=== PATIENT | male | born 1950 | race Caucasian/White ===

== ENCOUNTER 2018-10-27 13:53 | Observation (INO) | payer MEDICARE ==
[2018-10-27 14:22] LABS: CHLORIDE,CL 99 mEq/L (98-106); SODIUM,NA 137 mEq/L (136-145)
[2018-10-27] MEDS ORDERED: Sodium Chloride 0.9% 10 ML Syringe FLUSH PRN (16:37)
[2018-10-27] MEDS ORDERED: Albuterol 0.083% 2.5 MG/3 ML Neb Soln INH PRN (16:56)
[2018-10-27] MEDS ORDERED: **PTOM** Warfarin 5 MG Tab PO ONE (17:00)
[2018-10-27] MEDS: Levalbuterol HCl 1.25 MG/3 ML Neb NEB SCH ×2 (18:58→20:09)
[2018-10-27] MEDS ORDERED: Insulin NPH HUM/REG Insulin HM 100 UNIT/ML 3 ML Vial SQ SCH (20:00)
[2018-10-27] MEDS: CARVEDILOL 25 MG PO SCH (20:01)
[2018-10-27] MEDS ORDERED: guaiFENesin 200 MG Tab PO ONE ×2 (22:20→22:30)
[2018-10-28 07:45] LABS: CHLORIDE,CL 104 mEq/L (98-106); SODIUM,NA 141 mEq/L (136-145)
[2018-10-28] MEDS: Levalbuterol HCl 1.25 MG/3 ML Neb NEB SCH (07:53)
[2018-10-28] MEDS: **PTOM** Furosemide 40 MG Tab PO SCH (07:58)
[2018-10-28] MEDS: SPIRONOLACTONE 25 MG PO SCH (07:59)
[2018-10-28] MEDS ORDERED: AMLODIPINE BESYLATE 5 MG PO SCH ×2 (08:00→20:00)
[2018-10-28] MEDS ORDERED: LISINOPRIL 40 MG PO SCH ×2 (08:00→20:00)
[2018-10-28] MEDS ORDERED: CLOPIDOGREL 75 MG PO SCH ×2 (08:00→20:00)
[2018-10-28] MEDS: POTASSIUM CHLORIDE 20 MEQ PO SCH (08:02)
[2018-10-28] MEDS: CARVEDILOL 25 MG PO SCH ×2 (08:03→19:42)
[2018-10-28] MEDS: Aspirin 81 MG Tab.EC PO SCH (08:06)
[2018-10-28] MEDS: guaiFENesin 200 MG Tab PO SCH ×3 (08:06→19:45)
[2018-10-28] MEDS: Insulin NPH HUM/REG Insulin HM 100 UNIT/ML 3 ML Vial SQ SCH (08:13)
[2018-10-28] MEDS ORDERED: Levalbuterol HCl 1.25 MG/3 ML Neb NEB PRN (09:23)
[2018-10-28] MEDS: Albuterol/Ipratropium 3.0-0.5 MG/3 ML Neb Soln NEB SCH ×3 (12:00→19:57)
[2018-10-28] MEDS ORDERED: Warfarin 5 MG Tab PO ONE (17:26)
[2018-10-28] MEDS ORDERED: Insulin NPH HUM/REG Insulin HM 100 UNIT/ML 3 ML Vial SQ SCH (17:30)
[2018-10-28] MEDS: Budesonide 0.5 MG/2 ML Neb Susp NEB SCH (19:57)
--- NOTE | 2018-10-28 21:01 | PCM.PN ---
- General Info Date of Service: 10/28/18 Admission Dx/Problem (Free Text): Shortness of Breath with Exertion Functional Status: Reports: Pain Controlled, Tolerating Diet. Denies: Ambulating - Review of Systems General: Reports: Weakness, Fatigue HEENT: Reports: Post Nasal Drip. Denies: Ear Pain, Sinus Congestion, Rhinitis Pulmonary: Reports: Shortness of Breath, Cough, Sputum, Wheezing Cardiovascular: Denies: Chest Pain, Edema, Lightheadedness Gastrointestinal: Denies: Abdominal Pain, Nausea, Vomiting Genitourinary: Reports: No Symptoms Musculoskeletal: Reports: No Symptoms Skin: Reports: No Symptoms Neurological: Reports: Weakness - Patient Data Vitals - Most Recent: Last Vital Signs Temp 98.7 F 10/28/18 16:00 Pulse 85 10/28/18 16:00 Resp 20 10/28/18 16:00 BP 148/83 H 10/28/18 16:00 Pulse Ox 97 10/28/18 16:00 Weight - Most Recent: 256 lb Lab Results Last 24 Hours: Laboratory Results - last 24 hr 10/28/18 10/28/18 10/28/18 Range/Units 06:55 06:55 06:55 WBC 7.4 (5.0-10.0) 10^3/uL RBC 4.51 (4.50-6.00) 10^6/uL Hgb 15.1 (14.0-18.0) g/dL Hct 44.3 (40.0-54.0) % MCV 98.2 H (82.0-94.0) fL MCH 33.5 H (27.0-32.0) pg MCHC 34.1 (33.0-38.0) g/dL RDW Coeff of Mo 13.7 (11.0-15.0) % Plt Count 130 L (150-400) 10^3/uL Neut % (Auto) 55.2 (35-85) % Lymph % (Auto) 27.2 (10-55) % [place] % (Auto) 12.2 (0-16) % Eos % (Auto) 5.0 (0-5) % Baso % (Auto) 0.4 (0-3) % Neut # (Auto) 4.10 (1.80-7.00) 10^3/uL Lymph # (Auto) 2.02 (1.00-4.80) 10^3/uL [place] # (Auto) 0.91 H (0.00-0.80) 10^3/uL Eos # (Auto) 0.37 (0.00-0.45) 10^3/uL Baso # (Auto) 0.03 10^3/uL PT 12.3 (9.7-12.3) SEC INR 1.21 H (0.92-1.18) Sodium 141 (136-145) mEq/L Potassium 4.3 (3.5-5.0) mEq/L Chloride 104 (98-106) mEq/L Carbon Dioxide 33 H (21-32) mmol/L BUN 13 (7-18) mg/dL Creatinine 0.8 (0.7-1.3) mg/dL Est Cr Clr Drug Dosing 99.90 mL/min Estimated GFR (MDRD) > 60 (>=60) mL/min Glucose 107 H D (75-99) mg/dL POC Glucose (75-105) mg/dl Calcium 9.0 (8.4-10.1) mg/dL Troponin I 0.136 H (0.00-0.06) ng/mL C-Reactive Protein 2.2 H (0.2-0.8) mg/dL 10/28/18 10/28/18 10/28/18 Range/Units 08:09 11:45 17:24 WBC (5.0-10.0) 10^3/uL RBC (4.50-6.00) 10^6/uL Hgb (14.0-18.0) g/dL Hct (40.0-54.0) % MCV (82.0-94.0) fL MCH (27.0-32.0) pg MCHC (33.0-38.0) g/dL RDW Coeff of Mo (11.0-15.0) % Plt Count (150-400) 10^3/uL Neut % (Auto) (35-85) % Lymph % (Auto) (10-55) % [place] % (Auto) (0-16) % Eos % (Auto) (0-5) % Baso % (Auto) (0-3) % Neut # (Auto) (1.80-7.00) 10^3/uL Lymph # (Auto) (1.00-4.80) 10^3/uL [place] # (Auto) (0.00-0.80) 10^3/uL Eos # (Auto) (0.00-0.45) 10^3/uL Baso # (Auto) 10^3/uL PT (9.7-12.3) SEC INR (0.92-1.18) Sodium (136-145) mEq/L Potassium (3.5-5.0) mEq/L Chloride (98-106) mEq/L Carbon Dioxide (21-32) mmol/L BUN (7-18) mg/dL Creatinine (0.7-1.3) mg/dL Est Cr Clr Drug Dosing mL/min Estimated GFR (MDRD) (>=60) mL/min Glucose (75-99) mg/dL POC Glucose 107 H 310 H 274 H (75-105) mg/dl Calcium (8.4-10.1) mg/dL Troponin I (0.00-0.06) ng/mL C-Reactive Protein (0.2-0.8) mg/dL 10/28/18 Range/Units 20:37 WBC (5.0-10.0) 10^3/uL RBC (4.50-6.00) 10^6/uL Hgb (14.0-18.0) g/dL Hct (40.0-54.0) % MCV (82.0-94.0) fL MCH (27.0-32.0) pg MCHC (33.0-38.0) g/dL RDW Coeff of Mo (11.0-15.0) % Plt Count (150-400) 10^3/uL Neut % (Auto) (35-85) % Lymph % (Auto) (10-55) % [place] % (Auto) (0-16) % Eos % (Auto) (0-5) % Baso % (Auto) (0-3) % Neut # (Auto) (1.80-7.00) 10^3/uL Lymph # (Auto) (1.00-4.80) 10^3/uL [place] # (Auto) (0.00-0.80) 10^3/uL Eos # (Auto) (0.00-0.45) 10^3/uL Baso # (Auto) 10^3/uL PT (9.7-12.3) SEC INR (0.92-1.18) Sodium (136-145) mEq/L Potassium (3.5-5.0) mEq/L Chloride (98-106) mEq/L Carbon Dioxide (21-32) mmol/L BUN (7-18) mg/dL Creatinine (0.7-1.3) mg/dL Est Cr Clr Drug Dosing mL/min Estimated GFR (MDRD) (>=60) mL/min Glucose (75-99) mg/dL POC Glucose 378 H (75-105) mg/dl Calcium (8.4-10.1) mg/dL Troponin I (0.00-0.06) ng/mL C-Reactive Protein (0.2-0.8) mg/dL Med Orders - Current: Current Medications Albuterol (Proventil Neb Soln) 2.5 mg INH QIDRT PRN PRN Reason: Shortness of Breath Albuterol/Ipratropium (Duoneb 3.0-0.5 Mg/3 Ml) 3 ml NEB QIDRT [facility] Last Admin: 10/28/18 19:57 Dose: 3 ml Aspirin (Halfprin) 81 mg PO DAILY [facility] Last Admin: 10/28/18 08:06 Dose: 81 mg Budesonide (Pulmicort) 0.5 mg NEB BIDRT [facility] Last Admin: 10/28/18 19:57 Dose: 0.5 mg Clopidogrel Bisulfate (Plavix) 75 mg PO BEDTIME [facility] Last Admin: 10/28/18 19:43 Dose: 75 mg Furosemide (Lasix) 40 mg PO DAILY [facility] Last Admin: 10/28/18 07:58 Dose: 40 mg Guaifenesin (Organ-I Nr) 200 mg PO TID [facility] Last Admin: 10/28/18 19:45 Dose: 200 mg Insulin NPH Beef/Pork (Humulin 70-30) 100 unit SQ DAILY [facility] Last Admin: 10/28/18 08:13 Dose: 25 unit Insulin NPH Beef/Pork (Humulin 70-30) 50 unit SQ DAILY@1730 [facility] Last Admin: 10/28/18 18:02 Dose: 25 unit Levalbuterol HCl (Xopenex) 1.25 mg NEB QIDRT PRN PRN Reason: Wheezing Ptom Carvedilol (25 Mg) 25 mg PO BID [facility] Last Admin: 10/28/18 19:42 Dose: 25 mg Ptom Potassium (Chloride 20 Meq) 20 meq PO DAILY [facility] Last Admin: 10/28/18 08:02 Dose: 20 meq Ptom Amlodipine (Besylate 5 Mg) 5 mg PO BEDTIME [facility] Last Admin: 10/28/18 19:42 Dose: 5 mg Ptom Lisinopril (40 Mg) 40 mg PO BEDTIME [facility] Last Admin: 10/28/18 19:43 Dose: 40 mg Sodium Chloride (Saline Flush) 10 ml FLUSH ASDIRECTED PRN PRN Reason: Keep Vein Open Spironolactone (Aldactone) 25 mg PO DAILY [facility] Last Admin: 10/28/18 07:59 Dose: 25 mg Discontinued Medications Clopidogrel Bisulfate (Plavix) 75 mg PO DAILY [facility] Last Admin: 10/28/18 12:07 Dose: Not Given Guaifenesin (Organ-I Nr) 200 mg PO ONETIME ONE Stop: 10/27/18 22:31 Last Admin: 10/27/18 22:25 Dose: 200 mg Guaifenesin (Organ-I Nr) 200 mg PO ONETIME ONE Stop: 10/27/18 22:21 Last Admin: 10/27/18 23:10 Dose: Not Given Insulin NPH Beef/Pork (Humulin 70-30) 50 unit SQ BEDTIME [facility] Last Admin: 10/27/18 20:43 Dose: 50 unit Levalbuterol HCl (Xopenex) 1.25 mg NEB QIDRT [facility] Last Admin: 10/28/18 07:53 Dose: 1.25 mg Ptom Amlodipine (Besylate 5 Mg) 5 mg PO DAILY [facility] Last Admin: 10/28/18 12:06 Dose: Not Given Ptom Lisinopril (40 Mg) 40 mg PO DAILY [facility] Last Admin: 10/28/18 12:06 Dose: Not Given Warfarin Sodium (Coumadin) 10 mg PO ONETIME ONE Stop: 10/27/18 17:01 Last Admin: 10/27/18 19:23 Dose: Not Given Warfarin Sodium (Coumadin) 5 mg PO ONETIME ONE Stop: 10/28/18 17:27 Last Admin: 10/28/18 18:01 Dose: 5 mg - Exam Quality Assessment: Supplemental Oxygen General: Alert, Oriented HEENT: Mucous Membr. Moist/[place] Neck: Supple Lungs: Decreased Breath Sounds, Wheezing Cardiovascular: Irregular Rhythm GI/Abdominal Exam: Normal Bowel Sounds, Soft, Non-Tender Extremities: Normal Inspection, No Pedal Edema Skin: Warm, Dry Neurological: No New Focal Deficit - Problem List & Annotations (1) Shortness of breath on exertion SNOMED Code(s): 53351375 Code(s): R06.02 - SHORTNESS OF BREATH Status: Acute Priority: High Current Visit: Yes - Problem List Review Problem List Initiated/Reviewed/Updated: Yes - My Orders Last 24 Hours: My Active Orders 10/28/18 08:00 guaiFENesin [Organ-I NR] 200 mg PO TID 10/28/18 09:23 Levalbuterol HCl [Xopenex] 1.25 mg NEB QIDRT PRN 10/28/18 20:00 Budesonide [Pulmicort] 0.5 mg NEB BIDRT 10/28/18 Breakfast Consistent Carbohydrate Diet [DIET] - Assessment Assessment:: Shortness of Breath with exertion - Plan Plan:: Patient continues to feel short of breath, especially with exertion. Wheezing at times. Coughing yet, feels excessive phlegm at times. No chest pain. Does have chronic shortness of breath related to his COPD but states this felt somewhat different than his norm. Has had multiple stents placed as well. Troponin on admit indeterminate, still same range last night, this am is down minimally at 0.36. WBC normal. INR still low at 1.21. Telemetry shows atrial fib, low rate in the 50s at times. Did attempt to take off oxygen this am after round, got short of breath within 20 minutes or so and wanted oxygen resumed. Did ambulate to bathroom and sats dropped to the upper 80s. Will add Pulmicort nebs, Duonebs and monitor.
[2018-10-29] MEDS: SPIRONOLACTONE 25 MG PO SCH (07:07)
[2018-10-29] MEDS: **PTOM** Furosemide 40 MG Tab PO SCH (07:07)
[2018-10-29] MEDS: Albuterol/Ipratropium 3.0-0.5 MG/3 ML Neb Soln NEB SCH ×2 (07:07→11:39)
[2018-10-29] MEDS: guaiFENesin 200 MG Tab PO SCH (07:07)
[2018-10-29] MEDS: CARVEDILOL 25 MG PO SCH (07:07)
[2018-10-29] MEDS: Aspirin 81 MG Tab.EC PO SCH (07:07)
[2018-10-29] MEDS: Budesonide 0.5 MG/2 ML Neb Susp NEB SCH (07:07)
[2018-10-29] MEDS: POTASSIUM CHLORIDE 20 MEQ PO SCH (07:08)
[2018-10-29] MEDS: Insulin NPH HUM/REG Insulin HM 100 UNIT/ML 3 ML Vial SQ SCH (08:11)
[2018-10-29 14:12] VITALS: BP 128/62
--- NOTE | 2018-10-31 09:00 | PCM.DCSUM1 ---
Discharge Summary - Hospital Course Free Text/Narrative:: Patient presented to clinic for increased shortness of breath. Has history of COPD but shortness of breath worse than his norm. Does admit that the humidity does cause issues for him. Nebulizer treatment does not last 4 hours and is tight and wheezy. Had 4-5 stents placed in the past, worried SOB could be related to that. Labs done which did show normal d-dimer, WBC, BMP, ProBNP. Troponin indeterminate at 0.183. Admitted for serial enzymes, neb treatments and monitoring. Has history of atrial fib, diabetes, CAD. Diagnosis: Stroke: No Modified Carmen Scale: No Symptoms at All Modified [place] Scale Score: 0 - Discharge Data Discharge Date: 10/29/18 Discharge Disposition: Home, Self-Care 01 Condition: Good - Discharge Diagnosis/Problem(s) (1) Shortness of breath on exertion SNOMED Code(s): 26788793 ICD Code: R06.02 - SHORTNESS OF BREATH Status: Acute Priority: High - Patient Summary/Data Complications: none Hospital Course: Patient is improved today. Did struggle with shortness of breath yet yesterday. Initially unable to wean off oxygen as sats would drop in to the 80s with any activity. He has better air exchange today, less wheezing. Was started on pulmicort nebulizers yesterday. He has used symbicort in the past but states stops due to cost. Able to ambulate today with sat remaining at 90% or higher. Troponins did remain indeterminate but dropped from admit. No EKG changes. Atrial fib with low rate at times, asymptomatic. Blood sugars low at times near 100, insulin cut back while here with better control of dietary intake. INR was low on admit so have been watching his INR daily. Will increase weekly dose by 5 mg. Repeat INR at recheck Smoking cessation was discussed with patient as does admit he smokes even while taking his nebulizer treatments. Does feel better control with the duonebs and pulmicort while here versus just albuterol at home. Will discharge home on both. Follow up with Jm in next 1-2 weeks after discharge. - Patient Instructions Diet: Diabetic Diet Activity: As Tolerated - Discharge Plan *PRESCRIPTION DRUG MONITORING PROGRAM REVIEWED*: No *COPY OF PRESCRIPTION DRUG MONITORING REPORT IN PATIENT AVRIL: No Prescriptions/Med Rec: Albuterol/Ipratropium [DuoNeb 3.0-0.5 MG/3 ML] 3 ml NEB QIDRT #1 box Budesonide [Pulmicort] 0.5 mg NEB BIDRT #60 neb guaiFENesin [Organ-I NR] 200 mg PO TID #60 tablet Warfarin [Coumadin] 10 mg PO MOFR #30 tab Warfarin [Coumadin] 5 mg PO SUTUWETHSA #30 tab Home Medications: Home Meds Carvedilol 25 mg PO BID 02/08/14 [History] Furosemide 40 mg PO DAILY 02/08/14 [History] Insulin NPH/Insulin Reg,Human [HumuLIN 70-30] 50 units SUBCUT BEDTIME 02/08/14 [ History] Lisinopril 40 mg PO DAILY 02/08/14 [History] Spironolactone 25 mg PO DAILY 02/08/14 [History] amLODIPine Besylate [Amlodipine Besylate] 5 mg PO DAILY 02/08/14 [History] Albuterol [Proventil] 2.5 mg INH QIDRT PRN 08/15/17 [History] Aspirin [Halfprin] 81 mg PO DAILY 10/27/18 [History] Cholecalciferol (Vitamin D3) [Vitamin D3] 2,000 units PO DAILY 10/27/18 [History ] Clopidogrel Bisulfate [Clopidogrel] 75 mg PO DAILY 10/27/18 [History] Insulin NPH/Insulin Reg,Human [HumuLIN 70-30] 100 units SUBCUT DAILY 10/27/18 [ History] Multivitamin [Daily Multiple Vitamin] 1 each PO DAILY 10/27/18 [History] Potassium Chloride 20 meq PO DAILY 10/27/18 [History] Albuterol/Ipratropium [DuoNeb 3.0-0.5 MG/3 ML] 3 ml NEB QIDRT #1 box 10/29/18 [ Rx] Budesonide [Pulmicort] 0.5 mg NEB BIDRT #60 neb 10/29/18 [Rx] Warfarin [Coumadin] 5 mg PO SUTUWETHSA #30 tab 10/29/18 [Rx] Warfarin [Coumadin] 10 mg PO MOFR #30 tab 10/29/18 [Rx] guaiFENesin [Organ-I NR] 200 mg PO TID #60 tablet 10/29/18 [Rx] Referrals: Kenn Sahni PA-C [Primary Care Provider] - (Follow up with Jm in 10 days. Have INR prior to visit) - Discharge Summary/Plan Comment DC Time >30 min.: No - General Info Date of Service: 10/29/18 Admission Dx/Problem (Free Text: Shortness of Breath with Exertion Functional Status: Reports: Pain Controlled, Tolerating Diet, Ambulating - Review of Systems General: Denies: Fever, Weakness, Fatigue, Malaise HEENT: Reports: Post Nasal Drip, Rhinitis Pulmonary: Reports: Shortness of Breath, Cough, Wheezing. Denies: Sputum Cardiovascular: Denies: Chest Pain, Edema, Lightheadedness Gastrointestinal: Denies: Abdominal Pain, Nausea, Vomiting Genitourinary: Reports: No Symptoms Musculoskeletal: Reports: No Symptoms Skin: Reports: No Symptoms Neurological: Reports: No Symptoms - Patient Data Vitals - Most Recent: Last Vital Signs Temp 98.2 F 10/29/18 12:00 Pulse 68 10/29/18 12:00 Resp 18 10/29/18 12:00 BP 128/62 10/29/18 12:00 Pulse Ox 98 10/29/18 12:00 Weight - Most Recent: 256 lb Med Orders - Current: Current Medications Discontinued Medications Albuterol (Proventil Neb Soln) 2.5 mg INH QIDRT PRN PRN Reason: Shortness of Breath Albuterol/Ipratropium (Duoneb 3.0-0.5 Mg/3 Ml) 3 ml NEB QIDRT [facility] Last Admin: 10/29/18 11:39 Dose: 3 ml Aspirin (Halfprin) 81 mg PO DAILY [facility] Last Admin: 10/29/18 07:07 Dose: 81 mg Budesonide (Pulmicort) 0.5 mg NEB BIDRT [facility] Last Admin: 10/29/18 07:07 Dose: 0.5 mg Clopidogrel Bisulfate (Plavix) 75 mg PO DAILY [facility] Last Admin: 10/28/18 12:07 Dose: Not Given Clopidogrel Bisulfate (Plavix) 75 mg PO BEDTIME [facility] Last Admin: 10/28/18 19:43 Dose: 75 mg Furosemide (Lasix) 40 mg PO DAILY [facility] Last Admin: 10/29/18 07:07 Dose: 40 mg Guaifenesin (Organ-I Nr) 200 mg PO TID [facility] Last Admin: 10/29/18 07:07 Dose: 200 mg Guaifenesin (Organ-I Nr) 200 mg PO ONETIME ONE Stop: 10/27/18 22:31 Last Admin: 10/27/18 22:25 Dose: 200 mg Guaifenesin (Organ-I Nr) 200 mg PO ONETIME ONE Stop: 10/27/18 22:21 Last Admin: 10/27/18 23:10 Dose: Not Given Insulin NPH Beef/Pork (Humulin 70-30) 50 unit SQ BEDTIME [facility] Last Admin: 10/27/18 20:43 Dose: 50 unit Insulin NPH Beef/Pork (Humulin 70-30) 100 unit SQ DAILY [facility] Last Admin: 10/29/18 08:11 Dose: 25 unit Insulin NPH Beef/Pork (Humulin 70-30) 50 unit SQ DAILY@1730 [facility] Last Admin: 10/28/18 18:02 Dose: 25 unit Levalbuterol HCl (Xopenex) 1.25 mg NEB QIDRT [facility] Last Admin: 10/28/18 07:53 Dose: 1.25 mg Levalbuterol HCl (Xopenex) 1.25 mg NEB QIDRT PRN PRN Reason: Wheezing Ptom Amlodipine (Besylate 5 Mg) 5 mg PO DAILY [facility] Last Admin: 10/28/18 12:06 Dose: Not Given Ptom Carvedilol (25 Mg) 25 mg PO BID [facility] Last Admin: 10/29/18 07:07 Dose: 25 mg Ptom Lisinopril (40 Mg) 40 mg PO DAILY [facility] Last Admin: 10/28/18 12:06 Dose: Not Given Ptom Potassium (Chloride 20 Meq) 20 meq PO DAILY [facility] Last Admin: 10/29/18 07:08 Dose: 20 meq Ptom Amlodipine (Besylate 5 Mg) 5 mg PO BEDTIME [facility] Last Admin: 10/28/18 19:42 Dose: 5 mg Ptom Lisinopril (40 Mg) 40 mg PO BEDTIME [facility] Last Admin: 10/28/18 19:43 Dose: 40 mg Sodium Chloride (Saline Flush) 10 ml FLUSH ASDIRECTED PRN PRN Reason: Keep Vein Open Spironolactone (Aldactone) 25 mg PO DAILY [facility] Last Admin: 10/29/18 07:07 Dose: 25 mg Warfarin Sodium (Coumadin) 10 mg PO ONETIME ONE Stop: 10/27/18 17:01 Last Admin: 10/27/18 19:23 Dose: Not Given Warfarin Sodium (Coumadin) 5 mg PO ONETIME ONE Stop: 10/28/18 17:27 Last Admin: 10/28/18 18:01 Dose: 5 mg Warfarin Sodium 2 mg/ Warfarin (Sodium 5 mg) 7 mg PO DAILY ONE Stop: 10/29/18 12:01 Last Admin: 10/29/18 11:40 Dose: 7 mg - Exam General: Reports: Alert, Oriented HEENT: Reports: Mucous Membr. Moist/[place] Neck: Reports: Supple Lungs: Reports: Normal Respiratory Effort, Decreased Breath Sounds, Wheezing Cardiovascular: Reports: Irregular Rhythm GI/Abdominal Exam: Normal Bowel Sounds, Soft, Non-Tender Extremities: Normal Inspection, No Pedal Edema Skin: Reports: Warm, Dry Neurological: Reports: No New Focal Deficit
== END 2018-10-29 14:00 | disposition home or self-care (01) ==
LOC: CC.MS 13:53 → CC.FCMC 13:53 → CC.MS 15:51 → UNDOADMOB 15:51 → CC.MS 16:37
PROVIDERS: ADMIT Physician Assistant Medical; ATTEND Family Medicine
DX: R06.02 Shortness of breath (principal); J44.9 Chronic obstructive pulmonary disease, unspecified; I10 Essential (primary) hypertension; I25.10 Atherosclerotic heart disease of native coronary artery without angina pectoris; E11.9 Type 2 diabetes mellitus without complications; F17.210 Nicotine dependence, cigarettes, uncomplicated; Z79.899 Other long term (current) drug therapy; Z79.4 Long term (current) use of insulin; Z79.82 Long term (current) use of aspirin; Z79.02 Long term (current) use of antithrombotics/antiplatelets
CPT/HCPCS: 36415; 71046; 80048; 80053; 82550; 82962; 83615; 83880; 84484; 85025; 85379; 85610; 86140; 93005; 94640; A9270; J1815; J7612; G0378; J7620-GY

== ENCOUNTER 2019-12-05 23:10 | Inpatient (IN) | payer MEDICARE ==
--- NOTE | 2019-12-06 00:44 | EDM.PDOC ---
ED HPI GENERAL MEDICAL PROBLEM - General Chief Complaint: Respiratory Problem Stated Complaint: Shortness of breath Time Seen by Provider: 12/05/19 23:40 Source of Information: Reports: Patient History Limitations: Reports: No Limitations - History of Present Illness INITIAL COMMENTS - FREE TEXT/NARRATIVE: Pt presents per EMS with increasing SOB for the last 2-3 days. Has prog ressively become worse without any improvement with his home nebulizer treatments. He has long standing history of emphysema, COPD, and CAD. He has had stents placed at least 3 times but he states that it may have been 4. He had "bad" heartburn 3 days ago, less severe 2 days ago and hasn't had any for at least 24 hours. He states that in the last 2-3 days he has had increase in edema, increase in SOB with any activity to where he has difficulty walking across the room without SOB. He states that he even feels tight in the stomach area. Denies feeling constipated. Currently denies any chest pain or heartburn. 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: Other (see below) (nebulzer treatments) - Related Data Allergies Allergy/AdvReac Type Severity Reaction Status Date / Time No Known Allergies Allergy Verified 12/05/19 23:14 Home Meds: Home Meds Furosemide 40 mg PO DAILY 02/08/14 [History] Insulin NPH/Insulin Reg,Human [HumuLIN 70-30] 50 units SUBCUT BEDTIME 02/08/14 [History] Lisinopril 40 mg PO DAILY 02/08/14 [History] Spironolactone 12.5 mg PO DAILY 02/08/14 [History] amLODIPine Besylate [Amlodipine Besylate] 5 mg PO DAILY 02/08/14 [History] carvediloL [Carvedilol] 25 mg PO BID 02/08/14 [History] Aspirin [Halfprin] 81 mg PO DAILY 10/27/18 [History] Cholecalciferol (Vitamin D3) [Vitamin D3] 2,000 units PO DAILY 10/27/18 [History] Clopidogrel Bisulfate [Clopidogrel] 75 mg PO DAILY 10/27/18 [History] Insulin NPH/Insulin Reg,Human [HumuLIN 70-30] 100 units SUBCUT DAILY 10/27/18 [History] Multivitamin [Daily Multiple Vitamin] 1 each PO DAILY 10/27/18 [History] Potassium Chloride 20 meq PO DAILY 10/27/18 [History] Albuterol/Ipratropium [DuoNeb 3.0-0.5 MG/3 ML] 3 ml NEB QIDRT #1 box 10/29/18 [Rx] Budesonide [Pulmicort] 0.5 mg NEB BIDRT #60 neb 10/29/18 [Rx] Warfarin [Coumadin] 5 mg PO MOTUTHFRSA 09/13/19 [History] Warfarin [Coumadin] 10 mg PO SUWE 09/13/19 [History] Past Medical History HEENT History: Reports: Cataract Cardiovascular History: Reports: CAD, Hypertension, Stents, Other (See Below) Other Cardiovascular History: Heart attack, CHF Respiratory History: Reports: Asthma, Other (See Below) Other Respiratory History: Emphysema Gastrointestinal History: Reports: PUD Genitourinary History: Reports: BPH Other Genitourinary History: Enlarged prostate Musculoskeletal History: Reports: Arthritis, Other (See Below) (left rotator 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 pin in jaw Neurological History: Reports: Neuropathy, Diabetic Psychiatric History: Reports: Anxiety Endocrine/Metabolic History: Reports: Diabetes, Type II - Past Surgical History HEENT Surgical History: Reports: Cataract Surgery Cardiovascular Surgical History: Reports: None Respiratory Surgical History: Reports: None GI Surgical History: Reports: None Musculoskeletal Surgical History: Reports: None Social & Family History - Family History Family Medical History: Noncontributory - Tobacco Use Smoking Status *Q: Current Some Day Smoker Years of Tobacco use: 20 Packs/Tins Daily: 0.5 - Caffeine Use Caffeine Use: Reports: None - Recreational Drug Use Recreational Drug Use: No ED ROS GENERAL - Review of Systems Review Of Systems: See Below Constitutional: Denies: Fever, Chills HEENT: Reports: No Symptoms Respiratory: Reports: Shortness of Breath, Wheezing. Denies: Cough Cardiovascular: Reports: Dyspnea on Exertion, Edema GI/Abdominal: Reports: Other (heart burn 3 days ago). Denies: Constipation : Reports: No Symptoms Musculoskeletal: Reports: No Symptoms Skin: Reports: Bruising (to lower abdomen from his insulin) Neurological: Denies: Dizziness, Headache Psychiatric: Reports: Anxiety ED EXAM, GENERAL - Physical Exam Exam: See Below Exam Limited By: No Limitations General Appearance: Alert, WD/WN, Anxious, Mild Distress Eye Exam: Bilateral Eye: PERRL Nose: Normal Inspection Throat/Mouth: Normal Inspection, Normal Oropharynx, No Airway Compromise Head: Atraumatic, Normocephalic Neck: Normal Inspection, Supple, Non-Tender, Full Range of Motion Respiratory/Chest: Decreased Breath Sounds, Rales (few to bases bilaterally), Wheezing (through to right upper) Cardiovascular: Irregularly Irregular GI/Abdominal: Normal Bowel Sounds, Soft, Non-Tender, Other (bruises to lower abdomen) Back Exam: Normal Inspection Extremities: Normal Inspection, Normal Capillary Refill, Pedal Edema (2+ bilaterally.) Neurological: Alert, Oriented Skin Exam: Warm, Dry, Intact, Ecchymosis (to lower abdomen from insulin injections) Course - Vital Signs Last Recorded V/S: Last Vital Signs Temp 97.7 F 12/07/19 08:00 Pulse 91 12/07/19 08:11 Resp 20 12/07/19 08:00 BP 118/98 H 12/07/19 08:17 Pulse Ox 94 L 12/07/19 08:00 - Orders/Labs/Meds Labs: Laboratory Tests 12/05/19 12/05/19 12/05/19 Range/Units 23:52 23:52 23:53 WBC 7.3 (5.0-10.0) 10^3/uL RBC 3.98 L (4.50-6.00) 10^6/uL Hgb 13.0 L (14.0-18.0) g/dL Hct 38.1 L (40.0-54.0) % MCV 95.7 H (82.0-94.0) fL MCH 32.7 H (27.0-32.0) pg MCHC 34.1 (33.0-38.0) g/dL RDW Coeff of Mo 14.2 (11.0-15.0) % Plt Count 144 L (150-400) 10^3/uL Neut % (Auto) 69.4 (35-85) % Lymph % (Auto) 19.1 (10-55) % Angelina % (Auto) 8.9 (0-16) % Eos % (Auto) 2.2 (0-5) % Baso % (Auto) 0.4 (0-3) % Neut # (Auto) 5.05 (1.80-7.00) 10^3/uL Lymph # (Auto) 1.39 (1.00-4.80) 10^3/uL Angelina # (Auto) 0.65 (0.00-0.80) 10^3/uL Eos # (Auto) 0.16 (0.00-0.45) 10^3/uL Baso # (Auto) 0.03 10^3/uL PT 26.3 H (9.7-12.3) SEC INR 2.62 H (0.92-1.18) Sodium 139 (136-145) mEq/L Potassium 3.8 (3.5-5.0) mEq/L Chloride 99 (98-106) mEq/L Carbon Dioxide 30 (21-32) mmol/L BUN 18 (7-18) mg/dL Creatinine 1.2 (0.7-1.3) mg/dL Est Cr Clr Drug Dosing 61.97 mL/min Estimated GFR (MDRD) 60 (>=60) mL/min Glucose 198 H (75-99) mg/dL Calcium 8.7 (8.4-10.1) mg/dL Total Bilirubin 0.8 (0.0-1.0) mg/dL AST 21 (15-37) U/L ALT 21 (12-78) U/L Alkaline Phosphatase 72 (46-116) U/L Lactate Dehydrogenase 230 H (100-190) U/L Creatine Kinase 122 (35-232) U/L Troponin I 6.114 H* (0.00-0.06) ng/mL C-Reactive Protein 5.2 H (0.2-0.8) mg/dL NT-Pro-B Natriuret Pep (0-1000) pg/mL Total Protein 7.5 (6.4-8.2) g/dL Albumin 3.2 L (3.4-5.0) g/dL SARS CoV-2 RNA Rapid RICKEY (NEGATIVE) 12/05/19 12/06/19 Range/Units 23:53 00:24 WBC (5.0-10.0) 10^3/uL RBC (4.50-6.00) 10^6/uL Hgb (14.0-18.0) g/dL Hct (40.0-54.0) % MCV (82.0-94.0) fL MCH (27.0-32.0) pg MCHC (33.0-38.0) g/dL RDW Coeff of Mo (11.0-15.0) % Plt Count (150-400) 10^3/uL Neut % (Auto) (35-85) % Lymph % (Auto) (10-55) % Angelina % (Auto) (0-16) % Eos % (Auto) (0-5) % Baso % (Auto) (0-3) % Neut # (Auto) (1.80-7.00) 10^3/uL Lymph # (Auto) (1.00-4.80) 10^3/uL Angelina # (Auto) (0.00-0.80) 10^3/uL Eos # (Auto) (0.00-0.45) 10^3/uL Baso # (Auto) 10^3/uL PT (9.7-12.3) SEC INR (0.92-1.18) Sodium (136-145) mEq/L Potassium (3.5-5.0) mEq/L Chloride (98-106) mEq/L Carbon Dioxide (21-32) mmol/L BUN (7-18) mg/dL Creatinine (0.7-1.3) mg/dL Est Cr Clr Drug Dosing mL/min Estimated GFR (MDRD) (>=60) mL/min Glucose (75-99) mg/dL Calcium (8.4-10.1) mg/dL Total Bilirubin (0.0-1.0) mg/dL AST (15-37) U/L ALT (12-78) U/L Alkaline Phosphatase (46-116) U/L Lactate Dehydrogenase (100-190) U/L Creatine Kinase (35-232) U/L Troponin I (0.00-0.06) ng/mL C-Reactive Protein (0.2-0.8) mg/dL NT-Pro-B Natriuret Pep 2641 H (0-1000) pg/mL Total Protein (6.4-8.2) g/dL Albumin (3.4-5.0) g/dL SARS CoV-2 RNA Rapid RICKEY Negative (NEGATIVE) Meds: Medications Discontinued Medications Generic Name Dose Route Start Last Admin Trade Name Manoj MURPHYN Reason Stop Dose Admin Albuterol/Ipratropium 3 ml 12/06/19 08:00 12/06/19 10:10 Duoneb 3.0-0.5 Mg/3 Ml NEB Not Given QIDRT WAYNE Albuterol/Ipratropium 3 ml 12/06/19 08:45 12/07/19 07:50 Duoneb 3.0-0.5 Mg/3 Ml NEB 3 ml QID WAYNE Administration Albuterol/Ipratropium 3 ml 12/07/19 02:12 12/07/19 02:15 Duoneb 3.0-0.5 Mg/3 Ml NEB 12/07/19 02:13 3 ml STAT STA Administration Amlodipine Besylate 5 mg 12/06/19 08:15 12/07/19 08:17 Norvasc PO 5 mg DAILY WAYNE Administration Aspirin 81 mg 12/06/19 08:00 12/07/19 08:17 Halfprin PO 81 mg DAILY WAYNE Administration Budesonide 0.5 mg 12/06/19 08:00 12/07/19 08:13 Pulmicort NEB 0.5 mg BIDRT WAYNE Administration Carvedilol 25 mg 12/06/19 17:30 12/07/19 08:11 Coreg PO 25 mg BIDMEALS WAYNE Administration Clopidogrel Bisulfate 75 mg 12/06/19 08:00 12/07/19 08:15 Plavix PO 75 mg DAILY WAYNE Administration Furosemide 40 mg 12/06/19 01:30 12/06/19 02:10 Lasix IVPUSH 12/06/19 01:31 40 mg ONETIME ONE Administration Furosemide 40 mg 12/06/19 08:00 12/07/19 08:19 Lasix IVPUSH 40 mg Q24H WAYNE Administration Insulin Human Lispro 5 unit 12/06/19 19:50 12/06/19 20:14 Humalog SUBCUT 12/06/19 19:51 5 units STAT ONE Administration Insulin Human Regular 50 unit 12/06/19 20:00 Humulin R SUBCUT BEDTIME WAYNE Insulin Human Regular 100 unit 12/06/19 08:30 12/06/19 09:15 Humulin R SUBCUT Not Given DAILY [facility] Insulin NPH Beef/Pork 100 unit 12/07/19 08:00 Humulin 70-30 SQ DAILY WAYNE Insulin NPH Beef/Pork 50 - 100 unit 12/07/19 08:00 12/07/19 09:17 Humulin 70-30 SQ Not Given BIDAC WAYNE Isosorbide Mononitrate 30 mg 12/06/19 01:30 12/07/19 08:13 Imdur PO 30 mg DAILY WAYNE Administration Lisinopril 40 mg 12/06/19 08:20 12/07/19 08:15 Prinivil PO 40 mg DAILY WAYNE Administration Nitroglycerin 0.4 mg 12/06/19 16:46 12/06/19 16:52 Nitrostat SL 12/06/19 16:47 0.4 mg ONETIME ONE Administration Nitroglycerin 0.4 mg 12/06/19 23:05 12/06/19 23:11 Nitrostat SL 12/06/19 23:06 0.4 mg STAT STA Administration Non-Formulary Medication 5 mg 12/06/19 08:00 12/06/19 10:10 Amlodipine Besylate [Amlodipine Besylate] PO Not Given DAILY [facility] Non-Formulary Medication 25 mg 12/06/19 08:00 12/06/19 10:10 Carvedilol [Carvedilol] PO Not Given BID WAYNE Non-Formulary Medication 100 units 12/06/19 08:00 12/06/19 10:10 Insulin Nph/Insulin Reg,Human SUBCUT Not Given DAILY WAYNE Non-Formulary Medication 40 mg 12/06/19 08:00 12/06/19 10:09 Lisinopril [Lisinopril] PO Not Given DAILY [facility] Non-Formulary Medication 20 meq 12/06/19 08:00 12/06/19 10:08 Potassium Chloride [Potassium Chloride] PO Not Given DAILY WAYNE Pantoprazole Sodium 40 mg 12/06/19 01:30 12/06/19 02:09 Protonix Iv IVPUSH 40 mg Q12H WAYNE Administration Pantoprazole Sodium 40 mg 12/06/19 12:00 12/06/19 23:46 Protonix Iv IVPUSH 40 mg BID@0000,1200 WAYNE Administration Potassium Chloride 20 meq 12/06/19 08:30 12/07/19 08:17 Klor-Con 10 PO 20 meq DAILY WAYNE Administration Sodium Chloride 10 ml 12/06/19 01:22 12/06/19 07:59 Saline Flush FLUSH 10 ml ASDIRECTED PRN Administration Keep Vein Open Spironolactone 25 mg 12/06/19 08:00 12/06/19 07:47 Aldactone PO 25 mg DAILY WAYNE Administration Spironolactone 12.5 mg 12/07/19 08:00 12/07/19 08:14 Aldactone PO 12.5 mg DAILY WAYNE Administration Warfarin Sodium 5 mg 12/06/19 01:30 12/06/19 02:28 Coumadin PO Not Given MOTUTHFRSA WAYNE Warfarin Sodium 10 mg 12/07/19 12:00 Coumadin PO SUWE WAYNE Warfarin Sodium 5 mg 12/06/19 12:00 12/06/19 12:16 Coumadin PO 5 mg MOTUTHFRSA WAYNE Administration Zolpidem Tartrate 5 mg 12/06/19 02:08 12/06/19 02:18 Ambien PO 12/06/19 02:09 5 mg ONETIME ONE Administration Zolpidem Tartrate 5 mg 12/06/19 21:36 12/06/19 21:45 Ambien PO 5 mg BEDTIME PRN Administration Sleep - Re-Assessments/Exams Free Text/Narrative Re-Assessment/Exam: 12/06/19 0030 Kailash Remington contact via 1 call and they are on diversion 0035 Jero De La Paz is on diversion 0050- Discussed pt with Dr Jacobs horticultural farmworker principal research economist at [facility]. They are not able to take the pt as they are at capacity. She feels with the Troponin being over 6 and he has been pain free for over 24 hours that he can stay here and be reevaluated in the morning with repeat lab testing and echo. She did suggest he be started on Imdur. INR is therapeutic at this time so does not need Lovenox. Other meds discussed with her and she did not feel that they would need to be adjusted at this time. Departure - Departure Time of Disposition: 01:18 Disposition: Admitted As Inpatient 64 Condition: Serious Clinical Impression: Acute myocardial infarction, Shortness of breath on exertion, Type 2 diabetes mellitus treated with insulin COPD (chronic obstructive pulmonary disease) with emphysema Qualifiers: Emphysema type: unspecified Qualified Code(s): J43.9 - Emphysema, unspecified A-fib Qualifiers: Atrial fibrillation type: longstanding persistent Qualified Code(s): I48.11 - Longstanding persistent atrial fibrillation - Discharge Information *PRESCRIPTION DRUG MONITORING PROGRAM REVIEWED*: Not Applicable *COPY OF PRESCRIPTION DRUG MONITORING REPORT IN PATIENT AVRIL: Not Applicable Sepsis Event Note (ED) - Evaluation Sepsis Screening Result: No Definite Risk - Problem List & Annotations (1) Acute myocardial infarction SNOMED Code(s): 83777036 Code(s): I21.3 - ST ELEVATION (STEMI) MYOCARDIAL INFARCTION OF [facility] SITE Status: Acute Priority: High (2) Shortness of breath on exertion SNOMED Code(s): 20652404 Code(s): R06.02 - SHORTNESS OF BREATH Status: Acute Priority: High (3) A-fib SNOMED Code(s): 53617788 Code(s): I48.91 - UNSPECIFIED ATRIAL FIBRILLATION Status: Chronic Priority: Medium Qualifiers: Atrial fibrillation type: longstanding persistent Qualified Code(s): I48.11 - Longstanding persistent atrial fibrillation (4) COPD (chronic obstructive pulmonary disease) with emphysema SNOMED Code(s): 38048919 Code(s): J43.9 - EMPHYSEMA, UNSPECIFIED Status: Chronic Priority: Low Qualifiers: Emphysema type: unspecified Qualified Code(s): J43.9 - Emphysema, unspecified (5) Type 2 diabetes mellitus treated with insulin SNOMED Code(s): 678852494 Code(s): E11.9 - TYPE 2 DIABETES MELLITUS WITHOUT COMPLICATIONS; Z79.4 - INTERMEDIATE (CURRENT) USE OF INSULIN Status: Chronic Priority: Low - Problem List Review Problem List Initiated/Reviewed/Updated: Yes - Assessment/Plan Admission H&P: Please use this note as an admission H&P Plan: pt will be admitted until bed is available for transfer.
[2019-12-06] MEDS ORDERED: Sodium Chloride 0.9% 10 ML Syringe FLUSH PRN (01:22)
[2019-12-06] MEDS ORDERED: Furosemide 40 MG/4 ML VIAL IVPUSH ONE (01:30)
[2019-12-06] MEDS ORDERED: Pantoprazole 40 MG Vial IVPUSH SCH (01:30)
[2019-12-06] MEDS ORDERED: Warfarin 5 MG Tab PO SCH ×2 (01:30→12:00)
[2019-12-06] MEDS ORDERED: Zolpidem 5 MG Tab PO ONE (02:08)
[2019-12-06] MEDS: Isosorbide Mononitrate 30 MG Tab.ER PO SCH ×2 (02:08→07:49)
[2019-12-06] MEDS: Aspirin 81 MG Tab.EC PO SCH (07:49)
[2019-12-06] MEDS: Clopidogrel 75 MG Tab PO SCH (07:49)
[2019-12-06] MEDS: Budesonide 0.5 MG/2 ML Neb Susp NEB SCH ×2 (07:50→19:44)
[2019-12-06] MEDS: Furosemide 40 MG/4 ML VIAL IVPUSH SCH (07:57)
[2019-12-06] MEDS ORDERED: INSULIN REGULAR SUBCUT SCH (08:00)
[2019-12-06] MEDS ORDERED: CARVEDILOL 25 MG PO SCH (08:00)
[2019-12-06] MEDS ORDERED: Albuterol/Ipratropium 3.0-0.5 MG/3 ML Neb Soln NEB SCH (08:00)
[2019-12-06] MEDS ORDERED: Spironolactone 25 MG Tab PO SCH (08:00)
[2019-12-06] MEDS ORDERED: AMLODIPINE BESYLATE 5 MG PO SCH (08:00)
[2019-12-06] MEDS ORDERED: Non-Formulary Medication 1 Each (Potassium Chloride [Potassium Chloride] 20 MEQ) PO SCH (08:00)
[2019-12-06] MEDS ORDERED: INSULIN ISOPHANE SUBCUT SCH (08:00)
[2019-12-06] MEDS ORDERED: Non-Formulary Medication 1 Each (Lisinopril [Lisinopril] 40 MG) PO SCH (08:00)
[2019-12-06] MEDS ORDERED: Insulin Regular, Human 100 Units/ML 3 ML Vial SUBCUT SCH ×2 (08:30→20:00)
[2019-12-06] MEDS: Albuterol/Ipratropium 3.0-0.5 MG/3 ML Neb Soln NEB SCH ×4 (09:12→19:44)
[2019-12-06] MEDS: amLODIPine 10 MG Tab PO SCH (09:16)
[2019-12-06] MEDS: Potassium Chloride 10 MEQ Tab.ER PO SCH (09:17)
[2019-12-06] MEDS: Lisinopril 20 MG Tab PO SCH (09:20)
[2019-12-06] MEDS: Pantoprazole 40 MG Vial IVPUSH SCH ×2 (12:17→23:46)
--- NOTE | 2019-12-06 16:14 | PCM.PN ---
- General Info Date of Service: 12/06/19 Admission Dx/Problem (Free Text): Acute ID Functional Status: Reports: Pain Controlled, Tolerating Diet, Ambulating - Review of Systems General: Reports: Fatigue. Denies: Weakness HEENT: Reports: No Symptoms Pulmonary: Reports: Shortness of Breath. Denies: Cough Cardiovascular: Reports: Edema. Denies: Chest Pain, Lightheadedness Gastrointestinal: Denies: Abdominal Pain, Nausea, Vomiting Genitourinary: Reports: No Symptoms Musculoskeletal: Reports: No Symptoms Skin: Reports: No Symptoms Neurological: Reports: No Symptoms Psychiatric: Reports: No Symptoms - Patient Data Vitals - Most Recent: Last Vital Signs Temp 97.4 F 12/06/19 11:52 Pulse 86 12/06/19 11:52 Resp 20 12/06/19 11:52 BP 108/72 12/06/19 11:52 Pulse Ox 97 12/06/19 11:52 Weight - Most Recent: 262 lb I&O - Last 24 Hours: Intake & Output 12/06/19 12/06/19 12/06/19 06:59 14:59 22:59 Intake Total 1130 Output Total 1350 Balance -220 Lab Results Last 24 Hours: Laboratory Results - last 24 hr 12/05/19 12/05/19 12/05/19 Range/Units 23:52 23:52 23:53 WBC 7.3 (5.0-10.0) 10^3/uL RBC 3.98 L (4.50-6.00) 10^6/uL Hgb 13.0 L (14.0-18.0) g/dL Hct 38.1 L (40.0-54.0) % MCV 95.7 H (82.0-94.0) fL MCH 32.7 H (27.0-32.0) pg MCHC 34.1 (33.0-38.0) g/dL RDW Coeff of Mo 14.2 (11.0-15.0) % Plt Count 144 L (150-400) 10^3/uL Neut % (Auto) 69.4 (35-85) % Lymph % (Auto) 19.1 (10-55) % [place] % (Auto) 8.9 (0-16) % Eos % (Auto) 2.2 (0-5) % Baso % (Auto) 0.4 (0-3) % Neut # (Auto) 5.05 (1.80-7.00) 10^3/uL Lymph # (Auto) 1.39 (1.00-4.80) 10^3/uL [place] # (Auto) 0.65 (0.00-0.80) 10^3/uL Eos # (Auto) 0.16 (0.00-0.45) 10^3/uL Baso # (Auto) 0.03 10^3/uL PT 26.3 H (9.7-12.3) SEC INR 2.62 H (0.92-1.18) Sodium 139 (136-145) mEq/L Potassium 3.8 (3.5-5.0) mEq/L Chloride 99 (98-106) mEq/L Carbon Dioxide 30 (21-32) mmol/L BUN 18 (7-18) mg/dL Creatinine 1.2 (0.7-1.3) mg/dL Est Cr Clr Drug Dosing 61.97 mL/min Estimated GFR (MDRD) 60 (>=60) mL/min Glucose 198 H (75-99) mg/dL POC Glucose (75-105) mg/dl Calcium 8.7 (8.4-10.1) mg/dL Total Bilirubin 0.8 (0.0-1.0) mg/dL AST 21 (15-37) U/L ALT 21 (12-78) U/L Alkaline Phosphatase 72 (46-116) U/L Lactate Dehydrogenase 230 H (100-190) U/L Creatine Kinase 122 (35-232) U/L Troponin I 6.114 H* (0.00-0.06) ng/mL C-Reactive Protein 5.2 H (0.2-0.8) mg/dL NT-Pro-B Natriuret Pep (0-1000) pg/mL Total Protein 7.5 (6.4-8.2) g/dL Albumin 3.2 L (3.4-5.0) g/dL SARS CoV-2 RNA Rapid RICKEY (NEGATIVE) 12/05/19 12/06/19 12/06/19 Range/Units 23:53 00:24 05:11 WBC (5.0-10.0) 10^3/uL RBC (4.50-6.00) 10^6/uL Hgb (14.0-18.0) g/dL Hct (40.0-54.0) % MCV (82.0-94.0) fL MCH (27.0-32.0) pg MCHC (33.0-38.0) g/dL RDW Coeff of Mo (11.0-15.0) % Plt Count (150-400) 10^3/uL Neut % (Auto) (35-85) % Lymph % (Auto) (10-55) % [place] % (Auto) (0-16) % Eos % (Auto) (0-5) % Baso % (Auto) (0-3) % Neut # (Auto) (1.80-7.00) 10^3/uL Lymph # (Auto) (1.00-4.80) 10^3/uL [place] # (Auto) (0.00-0.80) 10^3/uL Eos # (Auto) (0.00-0.45) 10^3/uL Baso # (Auto) 10^3/uL PT (9.7-12.3) SEC INR (0.92-1.18) Sodium (136-145) mEq/L Potassium (3.5-5.0) mEq/L Chloride (98-106) mEq/L Carbon Dioxide (21-32) mmol/L BUN (7-18) mg/dL Creatinine (0.7-1.3) mg/dL Est Cr Clr Drug Dosing mL/min Estimated GFR (MDRD) (>=60) mL/min Glucose (75-99) mg/dL POC Glucose (75-105) mg/dl Calcium (8.4-10.1) mg/dL Total Bilirubin (0.0-1.0) mg/dL AST (15-37) U/L ALT (12-78) U/L Alkaline Phosphatase (46-116) U/L Lactate Dehydrogenase 231 H (100-190) U/L Creatine Kinase 108 (35-232) U/L Troponin I 4.820 H* (0.00-0.06) ng/mL C-Reactive Protein (0.2-0.8) mg/dL NT-Pro-B Natriuret Pep 2641 H (0-1000) pg/mL Total Protein (6.4-8.2) g/dL Albumin (3.4-5.0) g/dL SARS CoV-2 RNA Rapid RICKEY Negative (NEGATIVE) 12/06/19 12/06/19 Range/Units 07:40 11:50 WBC (5.0-10.0) 10^3/uL RBC (4.50-6.00) 10^6/uL Hgb (14.0-18.0) g/dL Hct (40.0-54.0) % MCV (82.0-94.0) fL MCH (27.0-32.0) pg MCHC (33.0-38.0) g/dL RDW Coeff of Mo (11.0-15.0) % Plt Count (150-400) 10^3/uL Neut % (Auto) (35-85) % Lymph % (Auto) (10-55) % [place] % (Auto) (0-16) % Eos % (Auto) (0-5) % Baso % (Auto) (0-3) % Neut # (Auto) (1.80-7.00) 10^3/uL Lymph # (Auto) (1.00-4.80) 10^3/uL [place] # (Auto) (0.00-0.80) 10^3/uL Eos # (Auto) (0.00-0.45) 10^3/uL Baso # (Auto) 10^3/uL PT (9.7-12.3) SEC INR (0.92-1.18) Sodium (136-145) mEq/L Potassium (3.5-5.0) mEq/L Chloride (98-106) mEq/L Carbon Dioxide (21-32) mmol/L BUN (7-18) mg/dL Creatinine (0.7-1.3) mg/dL Est Cr Clr Drug Dosing mL/min Estimated GFR (MDRD) (>=60) mL/min Glucose (75-99) mg/dL POC Glucose 105 122 H (75-105) mg/dl Calcium (8.4-10.1) mg/dL Total Bilirubin (0.0-1.0) mg/dL AST (15-37) U/L ALT (12-78) U/L Alkaline Phosphatase (46-116) U/L Lactate Dehydrogenase (100-190) U/L Creatine Kinase (35-232) U/L Troponin I (0.00-0.06) ng/mL C-Reactive Protein (0.2-0.8) mg/dL NT-Pro-B Natriuret Pep (0-1000) pg/mL Total Protein (6.4-8.2) g/dL Albumin (3.4-5.0) g/dL SARS CoV-2 RNA Rapid RICKEY (NEGATIVE) Med Orders - Current: Current Medications Albuterol/Ipratropium (Duoneb 3.0-0.5 Mg/3 Ml) 3 ml NEB QID [facility] Last Admin: 12/06/19 12:18 Dose: 3 ml Documented by: Amlodipine Besylate (Norvasc) 5 mg PO DAILY [facility] Last Admin: 12/06/19 09:16 Dose: 5 mg Documented by: Aspirin (Halfprin) 81 mg PO DAILY [facility] Last Admin: 12/06/19 07:49 Dose: 81 mg Documented by: Budesonide (Pulmicort) 0.5 mg NEB BIDRT [facility] Last Admin: 12/06/19 07:50 Dose: 0.5 mg Documented by: Carvedilol (Coreg) 25 mg PO BIDMEALS [facility] Clopidogrel Bisulfate (Plavix) 75 mg PO DAILY [facility] Last Admin: 12/06/19 07:49 Dose: 75 mg Documented by: Furosemide (Lasix) 40 mg IVPUSH Q24H [facility] Last Admin: 12/06/19 07:57 Dose: 40 mg Documented by: Insulin Human Regular (Humulin R) 50 unit SUBCUT BEDTIME [facility] Insulin Human Regular (Humulin R) 100 unit SUBCUT DAILY [facility] Last Admin: 12/06/19 09:15 Dose: Not Given Documented by: Isosorbide Mononitrate (Imdur) 30 mg PO DAILY [facility] Last Admin: 12/06/19 07:49 Dose: 30 mg Documented by: Lisinopril (Prinivil) 40 mg PO DAILY [facility] Last Admin: 12/06/19 09:20 Dose: 40 mg Documented by: Pantoprazole Sodium (Protonix Iv) 40 mg IVPUSH BID@0000,1200 [facility] Last Admin: 12/06/19 12:17 Dose: 40 mg Documented by: Potassium Chloride (Klor-Con 10) 20 meq PO DAILY [facility] Last Admin: 12/06/19 09:17 Dose: 20 meq Documented by: Sodium Chloride (Saline Flush) 10 ml FLUSH ASDIRECTED PRN PRN Reason: Keep Vein Open Last Admin: 12/06/19 07:59 Dose: 10 ml Documented by: Spironolactone (Aldactone) 12.5 mg PO DAILY [facility] Warfarin Sodium (Coumadin) 10 mg PO SUWE [facility] Warfarin Sodium (Coumadin) 5 mg PO MOTUTHFRSA [facility] Last Admin: 12/06/19 12:16 Dose: 5 mg Documented by: Discontinued Medications Albuterol/Ipratropium (Duoneb 3.0-0.5 Mg/3 Ml) 3 ml NEB QIDRT [facility] Last Admin: 12/06/19 10:10 Dose: Not Given Documented by: Furosemide (Lasix) 40 mg IVPUSH ONETIME ONE Stop: 12/06/19 01:31 Last Admin: 12/06/19 02:10 Dose: 40 mg Documented by: Non-Formulary Medication (Amlodipine Besylate [Amlodipine Besylate]) 5 mg PO DAILY [facility] Last Admin: 12/06/19 10:10 Dose: Not Given Documented by: Non-Formulary Medication (Carvedilol [Carvedilol]) 25 mg PO BID [facility] Last Admin: 12/06/19 10:10 Dose: Not Given Documented by: Non-Formulary Medication (Insulin Nph/Insulin Reg,Human) 100 units SUBCUT DAILY [facility] Last Admin: 12/06/19 10:10 Dose: Not Given Documented by: Non-Formulary Medication (Lisinopril [Lisinopril]) 40 mg PO DAILY [facility] Last Admin: 12/06/19 10:09 Dose: Not Given Documented by: Non-Formulary Medication (Potassium Chloride [Potassium Chloride]) 20 meq PO DAILY [facility] Last Admin: 12/06/19 10:08 Dose: Not Given Documented by: Pantoprazole Sodium (Protonix Iv) 40 mg IVPUSH Q12H [facility] Last Admin: 12/06/19 02:09 Dose: 40 mg Documented by: Spironolactone (Aldactone) 25 mg PO DAILY [facility] Last Admin: 12/06/19 07:47 Dose: 25 mg Documented by: Warfarin Sodium (Coumadin) 5 mg PO MOTUTHFRSA [facility] Last Admin: 12/06/19 02:28 Dose: Not Given Documented by: Zolpidem Tartrate (Ambien) 5 mg PO ONETIME ONE Stop: 12/06/19 02:09 Last Admin: 12/06/19 02:18 Dose: 5 mg Documented by: - Exam Quality Assessment: Supplemental Oxygen General: Alert, Oriented HEENT: Mucous Membr. Moist/[place] Neck: Supple Lungs: Rhonchi, Wheezing Cardiovascular: Irregular Rhythm GI/Abdominal Exam: Normal Bowel Sounds, Soft, Non-Tender Extremities: Normal Inspection, Pedal Edema (1+) Skin: Warm, Dry Neurological: No New Focal Deficit Sepsis Event Note - Evaluation Sepsis Screening Result: No Definite Risk - Focused Exam Vital Signs: Vital Signs Temp Pulse Resp BP BP Pulse Ox 12/06/19 11:52 97.4 F 86 20 108/72 97 12/06/19 09:20 120/71 12/06/19 09:16 120/71 12/06/19 07:49 120/71 12/06/19 07:35 98.0 F 64 20 120/71 97 - Problem List & Annotations (1) Acute myocardial infarction SNOMED Code(s): 23123273 Code(s): I21.3 - ST ELEVATION (STEMI) MYOCARDIAL INFARCTION OF [facility] SITE Status: Acute Priority: High Current Visit: Yes (2) Shortness of breath on exertion SNOMED Code(s): 87998420 Code(s): R06.02 - SHORTNESS OF BREATH Status: Acute Priority: High Current Visit: Yes - Problem List Review Problem List Initiated/Reviewed/Updated: Yes - My Orders Last 24 Hours: My Active Orders 12/06/19 Dinner Consistent Carbohydrate Diet (Diabetic) [Consistent Carbohydrate Diet] [DIET] - Assessment Assessment:: Acute ID - Plan Plan:: Patient is doing well today. Denies any heartburn or chest pain. Does still feel short of breath but admits is better with the oxygen now. Does have hist ory of COPD, states is wheezy often. History of atrial fib, rate is currently controlled. Troponin was 6.114 on presentation to ER, now this am 4.820. CK remains normal. LDH unchanged. EKG unchanged, shows atrial fib. Did contact [facility] at both 0800 today and 1240, unable to accept any patients yet in transfer due to full capacity. [facility] and [facility] also on diversion. Patient aware. Quite upset about this. Jm Sahni in to talk to patient as is usual provider to help explain. Will contact them again in am to determine when angiogram can be done. Continue Plavix and coumadin as well as Coreg. Repeat labs in am.
[2019-12-06] MEDS ORDERED: Nitroglycerin 0.4 MG Tab.SL SL ONE (16:46)
[2019-12-06] MEDS: Carvedilol 12.5 MG Tab PO SCH (17:35)
[2019-12-06] MEDS ORDERED: Insulin Lispro 100 Units/ML 3 ML Vial SUBCUT ONE (19:50)
[2019-12-06] MEDS ORDERED: Zolpidem 5 MG Tab PO PRN (21:36)
--- NOTE | 2019-12-06 22:55 | PCM.PN ---
- General Info Date of Service: 12/06/19 Admission Dx/Problem (Free Text): NSTEMI Subjective Update: Aleksey is a 69yo male who was admitted to the hospital early this morning with concerns of an NSTEMI. ER provider did admit patient for close monitoring with multiple attempts for transfer. Unable to transfer patient secondary to diversion at both facilities in [place] and [place]. Aleksey has known history of CAD with prior stents placed in [place]. Hospital provider has attempted today to transfer patient as well. Dr. Jacobs was contacted and further instructions were given until able to transfer patient. Aleksey has been stable during his time in the hospital. Started to experience some chest discomfort late this afternoon. Was given Nitro SL with complete relief of chest discomfort. Functional Status: Reports: Pain Controlled - Review of Systems HEENT: Reports: No Symptoms Pulmonary: Reports: Shortness of Breath Cardiovascular: Reports: Chest Pain (currently resolved), Dyspnea on Exertion Gastrointestinal: Reports: No Symptoms Neurological: Reports: No Symptoms - Patient Data Vitals - Most Recent: Last Vital Signs Temp 97.2 F 12/06/19 20:00 Pulse 89 12/06/19 20:00 Resp 18 12/06/19 20:00 BP 118/77 12/06/19 20:00 Pulse Ox 97 12/06/19 20:00 Weight - Most Recent: 262 lb I&O - Last 24 Hours: Intake & Output 12/06/19 12/06/19 12/06/19 06:59 14:59 22:59 Intake Total 1130 1500 Output Total 1350 Balance -220 1500 Lab Results Last 24 Hours: Laboratory Results - last 24 hr 12/05/19 12/05/19 12/05/19 Range/Units 23:52 23:52 23:53 WBC 7.3 (5.0-10.0) 10^3/uL RBC 3.98 L (4.50-6.00) 10^6/uL Hgb 13.0 L (14.0-18.0) g/dL Hct 38.1 L (40.0-54.0) % MCV 95.7 H (82.0-94.0) fL MCH 32.7 H (27.0-32.0) pg MCHC 34.1 (33.0-38.0) g/dL RDW Coeff of Mo 14.2 (11.0-15.0) % Plt Count 144 L (150-400) 10^3/uL Neut % (Auto) 69.4 (35-85) % Lymph % (Auto) 19.1 (10-55) % Ocean % (Auto) 8.9 (0-16) % Eos % (Auto) 2.2 (0-5) % Baso % (Auto) 0.4 (0-3) % Neut # (Auto) 5.05 (1.80-7.00) 10^3/uL Lymph # (Auto) 1.39 (1.00-4.80) 10^3/uL Ocean # (Auto) 0.65 (0.00-0.80) 10^3/uL Eos # (Auto) 0.16 (0.00-0.45) 10^3/uL Baso # (Auto) 0.03 10^3/uL PT 26.3 H (9.7-12.3) SEC INR 2.62 H (0.92-1.18) Sodium 139 (136-145) mEq/L Potassium 3.8 (3.5-5.0) mEq/L Chloride 99 (98-106) mEq/L Carbon Dioxide 30 (21-32) mmol/L BUN 18 (7-18) mg/dL Creatinine 1.2 (0.7-1.3) mg/dL Est Cr Clr Drug Dosing 61.97 mL/min Estimated GFR (MDRD) 60 (>=60) mL/min Glucose 198 H (75-99) mg/dL POC Glucose (75-105) mg/dl Calcium 8.7 (8.4-10.1) mg/dL Total Bilirubin 0.8 (0.0-1.0) mg/dL AST 21 (15-37) U/L ALT 21 (12-78) U/L Alkaline Phosphatase 72 (46-116) U/L Lactate Dehydrogenase 230 H (100-190) U/L Creatine Kinase 122 (35-232) U/L Troponin I 6.114 H* (0.00-0.06) ng/mL C-Reactive Protein 5.2 H (0.2-0.8) mg/dL NT-Pro-B Natriuret Pep (0-1000) pg/mL Total Protein 7.5 (6.4-8.2) g/dL Albumin 3.2 L (3.4-5.0) g/dL SARS CoV-2 RNA Rapid RICKEY (NEGATIVE) 12/05/19 12/06/19 12/06/19 Range/Units 23:53 00:24 05:11 WBC (5.0-10.0) 10^3/uL RBC (4.50-6.00) 10^6/uL Hgb (14.0-18.0) g/dL Hct (40.0-54.0) % MCV (82.0-94.0) fL MCH (27.0-32.0) pg MCHC (33.0-38.0) g/dL RDW Coeff of Mo (11.0-15.0) % Plt Count (150-400) 10^3/uL Neut % (Auto) (35-85) % Lymph % (Auto) (10-55) % Ocean % (Auto) (0-16) % Eos % (Auto) (0-5) % Baso % (Auto) (0-3) % Neut # (Auto) (1.80-7.00) 10^3/uL Lymph # (Auto) (1.00-4.80) 10^3/uL Ocean # (Auto) (0.00-0.80) 10^3/uL Eos # (Auto) (0.00-0.45) 10^3/uL Baso # (Auto) 10^3/uL PT (9.7-12.3) SEC INR (0.92-1.18) Sodium (136-145) mEq/L Potassium (3.5-5.0) mEq/L Chloride (98-106) mEq/L Carbon Dioxide (21-32) mmol/L BUN (7-18) mg/dL Creatinine (0.7-1.3) mg/dL Est Cr Clr Drug Dosing mL/min Estimated GFR (MDRD) (>=60) mL/min Glucose (75-99) mg/dL POC Glucose (75-105) mg/dl Calcium (8.4-10.1) mg/dL Total Bilirubin (0.0-1.0) mg/dL AST (15-37) U/L ALT (12-78) U/L Alkaline Phosphatase (46-116) U/L Lactate Dehydrogenase 231 H (100-190) U/L Creatine Kinase 108 (35-232) U/L Troponin I 4.820 H* (0.00-0.06) ng/mL C-Reactive Protein (0.2-0.8) mg/dL NT-Pro-B Natriuret Pep 2641 H (0-1000) pg/mL Total Protein (6.4-8.2) g/dL Albumin (3.4-5.0) g/dL SARS CoV-2 RNA Rapid RICKEY Negative (NEGATIVE) 12/06/19 12/06/19 12/06/19 Range/Units 07:40 11:50 16:52 WBC (5.0-10.0) 10^3/uL RBC (4.50-6.00) 10^6/uL Hgb (14.0-18.0) g/dL Hct (40.0-54.0) % MCV (82.0-94.0) fL MCH (27.0-32.0) pg MCHC (33.0-38.0) g/dL RDW Coeff of Mo (11.0-15.0) % Plt Count (150-400) 10^3/uL Neut % (Auto) (35-85) % Lymph % (Auto) (10-55) % Ocean % (Auto) (0-16) % Eos % (Auto) (0-5) % Baso % (Auto) (0-3) % Neut # (Auto) (1.80-7.00) 10^3/uL Lymph # (Auto) (1.00-4.80) 10^3/uL Ocean # (Auto) (0.00-0.80) 10^3/uL Eos # (Auto) (0.00-0.45) 10^3/uL Baso # (Auto) 10^3/uL PT (9.7-12.3) SEC INR (0.92-1.18) Sodium (136-145) mEq/L Potassium (3.5-5.0) mEq/L Chloride (98-106) mEq/L Carbon Dioxide (21-32) mmol/L BUN (7-18) mg/dL Creatinine (0.7-1.3) mg/dL Est Cr Clr Drug Dosing mL/min Estimated GFR (MDRD) (>=60) mL/min Glucose (75-99) mg/dL POC Glucose 105 122 H (75-105) mg/dl Calcium (8.4-10.1) mg/dL Total Bilirubin (0.0-1.0) mg/dL AST (15-37) U/L ALT (12-78) U/L Alkaline Phosphatase (46-116) U/L Lactate Dehydrogenase (100-190) U/L Creatine Kinase (35-232) U/L Troponin I 3.072 H* (0.00-0.06) ng/mL C-Reactive Protein (0.2-0.8) mg/dL NT-Pro-B Natriuret Pep (0-1000) pg/mL Total Protein (6.4-8.2) g/dL Albumin (3.4-5.0) g/dL SARS CoV-2 RNA Rapid RICKEY (NEGATIVE) 12/06/19 Range/Units 17:20 WBC (5.0-10.0) 10^3/uL RBC (4.50-6.00) 10^6/uL Hgb (14.0-18.0) g/dL Hct (40.0-54.0) % MCV (82.0-94.0) fL MCH (27.0-32.0) pg MCHC (33.0-38.0) g/dL RDW Coeff of Mo (11.0-15.0) % Plt Count (150-400) 10^3/uL Neut % (Auto) (35-85) % Lymph % (Auto) (10-55) % Ocean % (Auto) (0-16) % Eos % (Auto) (0-5) % Baso % (Auto) (0-3) % Neut # (Auto) (1.80-7.00) 10^3/uL Lymph # (Auto) (1.00-4.80) 10^3/uL Ocean # (Auto) (0.00-0.80) 10^3/uL Eos # (Auto) (0.00-0.45) 10^3/uL Baso # (Auto) 10^3/uL PT (9.7-12.3) SEC INR (0.92-1.18) Sodium (136-145) mEq/L Potassium (3.5-5.0) mEq/L Chloride (98-106) mEq/L Carbon Dioxide (21-32) mmol/L BUN (7-18) mg/dL Creatinine (0.7-1.3) mg/dL Est Cr Clr Drug Dosing mL/min Estimated GFR (MDRD) (>=60) mL/min Glucose (75-99) mg/dL POC Glucose 256 H (75-105) mg/dl Calcium (8.4-10.1) mg/dL Total Bilirubin (0.0-1.0) mg/dL AST (15-37) U/L ALT (12-78) U/L Alkaline Phosphatase (46-116) U/L Lactate Dehydrogenase (100-190) U/L Creatine Kinase (35-232) U/L Troponin I (0.00-0.06) ng/mL C-Reactive Protein (0.2-0.8) mg/dL NT-Pro-B Natriuret Pep (0-1000) pg/mL Total Protein (6.4-8.2) g/dL Albumin (3.4-5.0) g/dL SARS CoV-2 RNA Rapid RICKEY (NEGATIVE) Med Orders - Current: Current Medications Albuterol/Ipratropium (Duoneb 3.0-0.5 Mg/3 Ml) 3 ml NEB QID [facility] Last Admin: 12/06/19 19:44 Dose: 3 ml Documented by: Amlodipine Besylate (Norvasc) 5 mg PO DAILY [facility] Last Admin: 12/06/19 09:16 Dose: 5 mg Documented by: Aspirin (Halfprin) 81 mg PO DAILY [facility] Last Admin: 12/06/19 07:49 Dose: 81 mg Documented by: Budesonide (Pulmicort) 0.5 mg NEB BIDRT [facility] Last Admin: 12/06/19 19:44 Dose: 0.5 mg Documented by: Carvedilol (Coreg) 25 mg PO BIDMEALS [facility] Last Admin: 12/06/19 17:35 Dose: 25 mg Documented by: Clopidogrel Bisulfate (Plavix) 75 mg PO DAILY [facility] Last Admin: 12/06/19 07:49 Dose: 75 mg Documented by: Furosemide (Lasix) 40 mg IVPUSH Q24H [facility] Last Admin: 12/06/19 07:57 Dose: 40 mg Documented by: Insulin NPH Beef/Pork (Humulin 70-30) 50 - 100 unit SQ BIDAC [facility] Isosorbide Mononitrate (Imdur) 30 mg PO DAILY [facility] Last Admin: 12/06/19 07:49 Dose: 30 mg Documented by: Lisinopril (Prinivil) 40 mg PO DAILY [facility] Last Admin: 12/06/19 09:20 Dose: 40 mg Documented by: Pantoprazole Sodium (Protonix Iv) 40 mg IVPUSH BID@0000,1200 [facility] Last Admin: 12/06/19 12:17 Dose: 40 mg Documented by: Potassium Chloride (Klor-Con 10) 20 meq PO DAILY [facility] Last Admin: 12/06/19 09:17 Dose: 20 meq Documented by: Sodium Chloride (Saline Flush) 10 ml FLUSH ASDIRECTED PRN PRN Reason: Keep Vein Open Last Admin: 12/06/19 07:59 Dose: 10 ml Documented by: Spironolactone (Aldactone) 12.5 mg PO DAILY [facility] Zolpidem Tartrate (Ambien) 5 mg PO BEDTIME PRN PRN Reason: Sleep Last Admin: 12/06/19 21:45 Dose: 5 mg Documented by: Discontinued Medications Albuterol/Ipratropium (Duoneb 3.0-0.5 Mg/3 Ml) 3 ml NEB QIDRT [facility] Last Admin: 12/06/19 10:10 Dose: Not Given Documented by: Furosemide (Lasix) 40 mg IVPUSH ONETIME ONE Stop: 12/06/19 01:31 Last Admin: 12/06/19 02:10 Dose: 40 mg Documented by: Insulin Human Lispro (Humalog) 5 unit SUBCUT STAT ONE Stop: 12/06/19 19:51 Last Admin: 12/06/19 20:14 Dose: 5 units Documented by: Insulin Human Regular (Humulin R) 50 unit SUBCUT BEDTIME [facility] Insulin Human Regular (Humulin R) 100 unit SUBCUT DAILY [facility] Last Admin: 12/06/19 09:15 Dose: Not Given Documented by: Insulin NPH Beef/Pork (Humulin 70-30) 100 unit SQ DAILY [facility] Nitroglycerin (Nitrostat) 0.4 mg SL ONETIME ONE Stop: 12/06/19 16:47 Last Admin: 12/06/19 16:52 Dose: 0.4 mg Documented by: Non-Formulary Medication (Amlodipine Besylate [Amlodipine Besylate]) 5 mg PO DAILY [facility] Last Admin: 12/06/19 10:10 Dose: Not Given Documented by: Non-Formulary Medication (Carvedilol [Carvedilol]) 25 mg PO BID [facility] Last Admin: 12/06/19 10:10 Dose: Not Given Documented by: Non-Formulary Medication (Insulin Nph/Insulin Reg,Human) 100 units SUBCUT DAILY [facility] Last Admin: 12/06/19 10:10 Dose: Not Given Documented by: Non-Formulary Medication (Lisinopril [Lisinopril]) 40 mg PO DAILY [facility] Last Admin: 12/06/19 10:09 Dose: Not Given Documented by: Non-Formulary Medication (Potassium Chloride [Potassium Chloride]) 20 meq PO DAILY [facility] Last Admin: 12/06/19 10:08 Dose: Not Given Documented by: Pantoprazole Sodium (Protonix Iv) 40 mg IVPUSH Q12H [facility] Last Admin: 12/06/19 02:09 Dose: 40 mg Documented by: Spironolactone (Aldactone) 25 mg PO DAILY [facility] Last Admin: 12/06/19 07:47 Dose: 25 mg Documented by: Warfarin Sodium (Coumadin) 5 mg PO [facility] Last Admin: 12/06/19 02:28 Dose: Not Given Documented by: Warfarin Sodium (Coumadin) 10 mg PO [facility]END[facility] TO [facility] Warfarin Sodium (Coumadin) 5 mg PO [facility] Last Admin: 12/06/19 12:16 Dose: 5 mg Documented by: Zolpidem Tartrate (Ambien) 5 mg PO ONETIME ONE Stop: 12/06/19 02:09 Last Admin: 12/06/19 02:18 Dose: 5 mg Documented by: - Exam Quality Assessment: Supplemental Oxygen General: Alert, Oriented, No Acute Distress Lungs: Normal Respiratory Effort, Wheezing Cardiovascular: Irregular Rhythm Extremities: Pedal Edema Psy/Mental Status: Alert, Normal Affect, Normal Mood EKG INTERPRETATION EKG Date: 12/06/19 Time: 17:00 Rhythm: A-Fib ST-T: Depressed Comparison: No Change Sepsis Event Note - Evaluation Sepsis Screening Result: No Definite Risk - Focused Exam Vital Signs: Vital Signs Temp Pulse Pulse Resp BP BP Pulse Ox 12/06/19 20:00 97.2 F 89 18 118/77 97 12/06/19 17:35 84 111/73 12/06/19 16:52 77 127/74 12/06/19 16:00 97.4 F 87 20 115/71 97 12/06/19 11:52 97.4 F 86 20 108/72 97 - Problem List & Annotations (1) NSTEMI (non-ST elevated myocardial infarction) SNOMED Code(s): 46135317 Code(s): I21.4 - NON-ST ELEVATION (NSTEMI) MYOCARDIAL INFARCTION Status: Acute Priority: High Current Visit: Yes (2) A-fib SNOMED Code(s): 68273704 Code(s): I48.91 - UNSPECIFIED ATRIAL FIBRILLATION Status: Chronic Priority: Medium Current Visit: Yes Qualifiers: Atrial fibrillation type: longstanding persistent Qualified Code(s): I48.11 - Longstanding persistent atrial fibrillation (3) Shortness of breath on exertion SNOMED Code(s): 65770739 Code(s): R06.02 - SHORTNESS OF BREATH Status: Acute Priority: High Current Visit: Yes - Problem List Review Problem List Initiated/Reviewed/Updated: Yes - My Orders Last 24 Hours: My Active Orders 12/06/19 21:36 Zolpidem [Ambien] 5 mg PO BEDTIME PRN 12/07/19 08:00 Insulin NPH Hum/Reg Insulin Hm [Humulin 70-30] 50 - 100 unit SQ BIDAC - Assessment Assessment:: NSTEMI - Plan Plan:: 12/06/2019 1700hrs... Aleksey started to feel some chest discomfort/heartburn sensation late this afternoon. Aleksey rated discomfort a 6 out of 10. Patient was given Nitro SL X 1 and pain completely subsided. Dr. Lay was in to evaluate Aleksey and repeat EKG performed with no change. Repeat troponin did continue to show trending downward. Consulted Dr. Fisher, form tamping machine operator at [facility], who did recommend holding Coumadin. Will get INR in am and advised once INR was close to 2 may proceed with a heparin drip. If pain returns, recommendation to start Nitro drip. Did recommend calling in am again to see if they were able to accept any patients. Patient and vital signs stable at this time. Will keep NPO after midnight. Patient is doing well today. Denies any heartburn or chest pain. Does still feel short of breath but admits is better with the oxygen now. Does have history of COPD, states is wheezy often. History of atrial fib, rate is currently controlled. Troponin was 6.114 on presentation to ER, now this am 4.820. CK remains normal. LDH unchanged. EKG unchanged, shows atrial fib. Did contact [facility] in [place] at both 0800 today and 1240, unable to accept any patients yet in transfer due to full capacity. [facility] also on diversion. Patient aware. Quite upset about this. Jm Sahni in to talk to patient as is usual provider to help explain. Will contact them again in am to determine when angiogram can be done. Continue Plavix and coumadin as well as Coreg. Repeat labs in am.
[2019-12-06] MEDS ORDERED: Nitroglycerin 0.4 MG Tab.SL SL STA (23:05)
[2019-12-07] MEDS ORDERED: Albuterol/Ipratropium 3.0-0.5 MG/3 ML Neb Soln NEB STA (02:12)
[2019-12-07 07:38] LABS: CHLORIDE,CL 101 mEq/L (98-106); SODIUM,NA 137 mEq/L (136-145)
[2019-12-07] MEDS: Albuterol/Ipratropium 3.0-0.5 MG/3 ML Neb Soln NEB SCH (07:50)
[2019-12-07] MEDS ORDERED: Insulin NPH HUM/REG Insulin HM 100 UNIT/ML 3 ML Vial SQ SCH ×2 (08:00)
[2019-12-07] MEDS ORDERED: Spironolactone 25 MG Tab PO SCH (08:00)
[2019-12-07] MEDS: Carvedilol 12.5 MG Tab PO SCH (08:11)
[2019-12-07] MEDS: Isosorbide Mononitrate 30 MG Tab.ER PO SCH (08:13)
[2019-12-07] MEDS: Budesonide 0.5 MG/2 ML Neb Susp NEB SCH (08:13)
[2019-12-07] MEDS: Lisinopril 20 MG Tab PO SCH (08:15)
[2019-12-07] MEDS: Clopidogrel 75 MG Tab PO SCH (08:15)
[2019-12-07] MEDS: Aspirin 81 MG Tab.EC PO SCH (08:17)
[2019-12-07] MEDS: amLODIPine 10 MG Tab PO SCH (08:17)
[2019-12-07] MEDS: Potassium Chloride 10 MEQ Tab.ER PO SCH (08:17)
[2019-12-07] MEDS: Furosemide 40 MG/4 ML VIAL IVPUSH SCH (08:19)
[2019-12-07 08:28] VITALS: BP 118/98; PULSE 91
--- NOTE | 2019-12-07 09:24 | PCM.DCSUM1 ---
Discharge Summary - Hospital Course Free Text/Narrative:: Aleksey is a 69 year old male who presented to ER with increasing shortness of breath not controlled by his nebulizer treatments at home. He had severe chest pain described as heartburn for 2 and 3 days prior. No pain for the last 24 hours prior to presentation. States "could hardly walk 3 feet without feeling short of breath". Does have history of COPD and typically his nebulizer treatments do resolve much of his SOB but has not over the last 2 days. Has noted increase in edema as of late as well. Labs done in ER showed a troponin of 6.11, EKG shows atrial fib with ST changes. Zakia Sahni had contacted several facilities early yesterday am but were on diversion due to full capacity. Dr. Jacobs recommended starting ImDur, serial enzymes and obtain an echo. Kept on Plavix and Coumadin so no other anticoagulation recommended. Admitted and seria l enzymes ordered. Oxygen to keep sats greater than 90% Diagnosis: Stroke: No Modified [place] Scale: No Symptoms at All Modified [place] Scale Score: 0 - Discharge Data Discharge Date: 12/07/19 Discharge Disposition: DC/Tfer to Acute Hospital 02 Condition: Fair - Referral to Home Health Primary Care Physician: Kenn Sahni PA-C - Discharge Diagnosis/Problem(s) (1) Acute myocardial infarction SNOMED Code(s): 47264485 ICD Code: I21.3 - ST ELEVATION (STEMI) MYOCARDIAL INFARCTION OF [facility] SITE Status: Acute Priority: High Current Visit: Yes (2) Shortness of breath on exertion SNOMED Code(s): 17764257 ICD Code: R06.02 - SHORTNESS OF BREATH Status: Acute Priority: High Current Visit: Yes - Patient Summary/Data Complications: bed availability Hospital Course: Patient was pain free for first 12 hours of admission. Troponins trending down, noted at 4 in am. No pain. Did feel oxygen was reducing his shortness of breath. AMbulating to bathroom per self. Contact [facility] and [facility], both still full capacities at [phone] and [phone]. As patient was stable, advised to continue to monitor, echo obtained and transfer as able. Late afternoon, patient developed again "heartburn". EKG repeated and unchanged, Troponin down to 3. [place] was contacted, no changes recommended, unable to take patient in transfer. Patient received 2 nitro since that time. This am, is pain free. Continues to feel more short of breath, not tolerating activity as well. Troponin is down to 1.4. Other labs are stable. Blood pressure did spike up with pain but stable now at 117/73. Oxygen sats are stable at 97% with 3 liters. contacted [facility]. Senior [employer] does agree to accept the patient in transfer, now have bed availability. Spoke with Dr. Lantigua, hospitalist with status. Agreed to accept the patient in transfer. patient advised and agrees. Likely angiogram today. Is kept NPO. - Patient Instructions Diet: NPO Activity: As Tolerated Other/Special Instructions: Transfer to [facility] Dr. Swain - Discharge Plan *PRESCRIPTION DRUG MONITORING PROGRAM REVIEWED*: Not Applicable *COPY OF PRESCRIPTION DRUG MONITORING REPORT IN PATIENT AVRIL: Not Applicable Home Medications: Home Meds Furosemide 40 mg PO DAILY 02/08/14 [History] Insulin NPH/Insulin Reg,Human [HumuLIN 70-30] 50 units SUBCUT BEDTIME 02/08/14 [History] Lisinopril 40 mg PO DAILY 02/08/14 [History] Spironolactone 12.5 mg PO DAILY 02/08/14 [History] amLODIPine Besylate [Amlodipine Besylate] 5 mg PO DAILY 02/08/14 [History] carvediloL [Carvedilol] 25 mg PO BID 02/08/14 [History] Aspirin [Halfprin] 81 mg PO DAILY 10/27/18 [History] Cholecalciferol (Vitamin D3) [Vitamin D3] 2,000 units PO DAILY 10/27/18 [History] Clopidogrel Bisulfate [Clopidogrel] 75 mg PO DAILY 10/27/18 [History] Insulin NPH/Insulin Reg,Human [HumuLIN 70-30] 100 units SUBCUT DAILY 10/27/18 [History] Multivitamin [Daily Multiple Vitamin] 1 each PO DAILY 10/27/18 [History] Potassium Chloride 20 meq PO DAILY 10/27/18 [History] Albuterol/Ipratropium [DuoNeb 3.0-0.5 MG/3 ML] 3 ml NEB QIDRT #1 box 10/29/18 [Rx] Budesonide [Pulmicort] 0.5 mg NEB BIDRT #60 neb 10/29/18 [Rx] Warfarin [Coumadin] 5 mg PO MOTUTHFRSA 09/13/19 [History] Warfarin [Coumadin] 10 mg PO SUWE 09/13/19 [History] Forms: ED Department Discharge Referrals: Kenn Sahni PA-C [Primary Care Provider] - - Discharge Summary/Plan Comment DC Time >30 min.: Yes - General Info Date of Service: 12/07/19 Admission Dx/Problem (Free Text: NSTEMI Functional Status: Reports: Pain Controlled, Tolerating Diet, Ambulating - Review of Systems General: Reports: Weakness, Fatigue HEENT: Reports: No Symptoms Pulmonary: Reports: Shortness of Breath. Denies: Cough Cardiovascular: Reports: Chest Pain, Edema. Denies: Lightheadedness Gastrointestinal: Denies: Abdominal Pain, Nausea, Vomiting Genitourinary: Reports: No Symptoms Musculoskeletal: Reports: No Symptoms Skin: Reports: No Symptoms Neurological: Reports: Weakness - Patient Data Vitals - Most Recent: Last Vital Signs Temp 97 F 12/06/19 23:41 Pulse 91 12/07/19 08:11 Resp 22 H 12/07/19 02:30 BP 118/98 H 12/07/19 08:17 Pulse Ox 95 12/07/19 02:30 Weight - Most Recent: 260 lb 11.2 oz I&O - Last 24 hours: Intake & Output 12/06/19 12/07/19 12/07/19 22:59 06:59 14:59 Intake Total 1500 1000 Balance 1500 1000 Lab Results - Last 24 hrs: Laboratory Results - last 24 hr 12/06/19 12/06/19 12/06/19 Range/Units 11:50 16:52 17:20 WBC (5.0-10.0) 10^3/uL RBC (4.50-6.00) 10^6/uL Hgb (14.0-18.0) g/dL Hct (40.0-54.0) % MCV (82.0-94.0) fL MCH (27.0-32.0) pg MCHC (33.0-38.0) g/dL RDW Coeff of Mo (11.0-15.0) % Plt Count (150-400) 10^3/uL Neut % (Auto) (35-85) % Lymph % (Auto) (10-55) % [place] % (Auto) (0-16) % Eos % (Auto) (0-5) % Baso % (Auto) (0-3) % Neut # (Auto) (1.80-7.00) 10^3/uL Lymph # (Auto) (1.00-4.80) 10^3/uL [place] # (Auto) (0.00-0.80) 10^3/uL Eos # (Auto) (0.00-0.45) 10^3/uL Baso # (Auto) 10^3/uL PT (9.7-12.3) SEC INR (0.92-1.18) Sodium (136-145) mEq/L Potassium (3.5-5.0) mEq/L Chloride (98-106) mEq/L Carbon Dioxide (21-32) mmol/L BUN (7-18) mg/dL Creatinine (0.7-1.3) mg/dL Est Cr Clr Drug Dosing mL/min Estimated GFR (MDRD) (>=60) mL/min Glucose (75-99) mg/dL POC Glucose 122 H 256 H (75-105) mg/dl Calcium (8.4-10.1) mg/dL Creatine Kinase (35-232) U/L Troponin I 3.072 H* (0.00-0.06) ng/mL C-Reactive Protein (0.2-0.8) mg/dL NT-Pro-B Natriuret Pep (0-1000) pg/mL 12/06/19 12/07/19 12/07/19 Range/Units 19:43 06:50 07:03 WBC (5.0-10.0) 10^3/uL RBC (4.50-6.00) 10^6/uL Hgb (14.0-18.0) g/dL Hct (40.0-54.0) % MCV (82.0-94.0) fL MCH (27.0-32.0) pg MCHC (33.0-38.0) g/dL RDW Coeff of Mo (11.0-15.0) % Plt Count (150-400) 10^3/uL Neut % (Auto) (35-85) % Lymph % (Auto) (10-55) % [place] % (Auto) (0-16) % Eos % (Auto) (0-5) % Baso % (Auto) (0-3) % Neut # (Auto) (1.80-7.00) 10^3/uL Lymph # (Auto) (1.00-4.80) 10^3/uL [place] # (Auto) (0.00-0.80) 10^3/uL Eos # (Auto) (0.00-0.45) 10^3/uL Baso # (Auto) 10^3/uL PT 38.7 H (9.7-12.3) SEC INR 3.88 H (0.92-1.18) Sodium (136-145) mEq/L Potassium (3.5-5.0) mEq/L Chloride (98-106) mEq/L Carbon Dioxide (21-32) mmol/L BUN (7-18) mg/dL Creatinine (0.7-1.3) mg/dL Est Cr Clr Drug Dosing mL/min Estimated GFR (MDRD) (>=60) mL/min Glucose (75-99) mg/dL POC Glucose 309 H (75-105) mg/dl Calcium (8.4-10.1) mg/dL Creatine Kinase (35-232) U/L Troponin I (0.00-0.06) ng/mL C-Reactive Protein (0.2-0.8) mg/dL NT-Pro-B Natriuret Pep 1606 H (0-1000) pg/mL 12/07/19 12/07/19 12/07/19 Range/Units 07:03 07:03 08:10 WBC 6.5 (5.0-10.0) 10^3/uL RBC 4.06 L (4.50-6.00) 10^6/uL Hgb 13.0 L (14.0-18.0) g/dL Hct 39.4 L (40.0-54.0) % MCV 97.0 H (82.0-94.0) fL MCH 32.0 (27.0-32.0) pg MCHC 33.0 (33.0-38.0) g/dL RDW Coeff of Mo 14.1 (11.0-15.0) % Plt Count 132 L (150-400) 10^3/uL Neut % (Auto) 68.2 (35-85) % Lymph % (Auto) 18.6 (10-55) % [place] % (Auto) 9.8 (0-16) % Eos % (Auto) 2.9 (0-5) % Baso % (Auto) 0.5 (0-3) % Neut # (Auto) 4.40 (1.80-7.00) 10^3/uL Lymph # (Auto) 1.20 (1.00-4.80) 10^3/uL [place] # (Auto) 0.63 (0.00-0.80) 10^3/uL Eos # (Auto) 0.19 (0.00-0.45) 10^3/uL Baso # (Auto) 0.03 10^3/uL PT (9.7-12.3) SEC INR (0.92-1.18) Sodium 137 (136-145) mEq/L Potassium 4.1 (3.5-5.0) mEq/L Chloride 101 (98-106) mEq/L Carbon Dioxide 31 (21-32) mmol/L BUN 14 (7-18) mg/dL Creatinine 1.0 (0.7-1.3) mg/dL Est Cr Clr Drug Dosing 74.37 mL/min Estimated GFR (MDRD) > 60 (>=60) mL/min Glucose 198 H (75-99) mg/dL POC Glucose 198 H (75-105) mg/dl Calcium 8.7 (8.4-10.1) mg/dL Creatine Kinase 85 (35-232) U/L Troponin I 1.400 H (0.00-0.06) ng/mL C-Reactive Protein 3.5 H (0.2-0.8) mg/dL NT-Pro-B Natriuret Pep (0-1000) pg/mL Med Orders - Current: Current Medications Albuterol/Ipratropium (Duoneb 3.0-0.5 Mg/3 Ml) 3 ml NEB QID [facility] Last Admin: 12/07/19 07:50 Dose: 3 ml Documented by: Amlodipine Besylate (Norvasc) 5 mg PO DAILY [facility] Last Admin: 12/07/19 08:17 Dose: 5 mg Documented by: Aspirin (Halfprin) 81 mg PO DAILY [facility] Last Admin: 12/07/19 08:17 Dose: 81 mg Documented by: Budesonide (Pulmicort) 0.5 mg NEB BIDRT [facility] Last Admin: 12/07/19 08:13 Dose: 0.5 mg Documented by: Carvedilol (Coreg) 25 mg PO BIDMEALS [facility] Last Admin: 12/07/19 08:11 Dose: 25 mg Documented by: Clopidogrel Bisulfate (Plavix) 75 mg PO DAILY [facility] Last Admin: 12/07/19 08:15 Dose: 75 mg Documented by: Furosemide (Lasix) 40 mg IVPUSH Q24H [facility] Last Admin: 12/07/19 08:19 Dose: 40 mg Documented by: Insulin NPH Beef/Pork (Humulin 70-30) 50 - 100 unit SQ BIDAC [facility] Last Admin: 12/07/19 09:17 Dose: Not Given Documented by: Isosorbide Mononitrate (Imdur) 30 mg PO DAILY [facility] Last Admin: 12/07/19 08:13 Dose: 30 mg Documented by: Lisinopril (Prinivil) 40 mg PO DAILY [facility] Last Admin: 12/07/19 08:15 Dose: 40 mg Documented by: Pantoprazole Sodium (Protonix Iv) 40 mg IVPUSH BID@0000,1200 [facility] Last Admin: 12/06/19 23:46 Dose: 40 mg Documented by: Potassium Chloride (Klor-Con 10) 20 meq PO DAILY [facility] Last Admin: 12/07/19 08:17 Dose: 20 meq Documented by: Sodium Chloride (Saline Flush) 10 ml FLUSH ASDIRECTED PRN PRN Reason: Keep Vein Open Last Admin: 12/06/19 07:59 Dose: 10 ml Documented by: Spironolactone (Aldactone) 12.5 mg PO DAILY [facility] Last Admin: 12/07/19 08:14 Dose: 12.5 mg Documented by: Zolpidem Tartrate (Ambien) 5 mg PO BEDTIME PRN PRN Reason: Sleep Last Admin: 12/06/19 21:45 Dose: 5 mg Documented by: Discontinued Medications Albuterol/Ipratropium (Duoneb 3.0-0.5 Mg/3 Ml) 3 ml NEB QIDRT [facility] Last Admin: 12/06/19 10:10 Dose: Not Given Documented by: Albuterol/Ipratropium (Duoneb 3.0-0.5 Mg/3 Ml) 3 ml NEB STAT STA Stop: 12/07/19 02:13 Last Admin: 12/07/19 02:15 Dose: 3 ml Documented by: Furosemide (Lasix) 40 mg IVPUSH ONETIME ONE Stop: 12/06/19 01:31 Last Admin: 12/06/19 02:10 Dose: 40 mg Documented by: Insulin Human Lispro (Humalog) 5 unit SUBCUT STAT ONE Stop: 12/06/19 19:51 Last Admin: 12/06/19 20:14 Dose: 5 units Documented by: Insulin Human Regular (Humulin R) 50 unit SUBCUT BEDTIME [facility] Insulin Human Regular (Humulin R) 100 unit SUBCUT DAILY [facility] Last Admin: 12/06/19 09:15 Dose: Not Given Documented by: Insulin NPH Beef/Pork (Humulin 70-30) 100 unit SQ DAILY [facility] Nitroglycerin (Nitrostat) 0.4 mg SL ONETIME ONE Stop: 12/06/19 16:47 Last Admin: 12/06/19 16:52 Dose: 0.4 mg Documented by: Nitroglycerin (Nitrostat) 0.4 mg SL STAT STA Stop: 12/06/19 23:06 Last Admin: 12/06/19 23:11 Dose: 0.4 mg Documented by: Non-Formulary Medication (Amlodipine Besylate [Amlodipine Besylate]) 5 mg PO DAILY [facility] Last Admin: 12/06/19 10:10 Dose: Not Given Documented by: Non-Formulary Medication (Carvedilol [Carvedilol]) 25 mg PO BID [facility] Last Admin: 12/06/19 10:10 Dose: Not Given Documented by: Non-Formulary Medication (Insulin Nph/Insulin Reg,Human) 100 units SUBCUT DAILY [facility] Last Admin: 12/06/19 10:10 Dose: Not Given Documented by: Non-Formulary Medication (Lisinopril [Lisinopril]) 40 mg PO DAILY [facility] Last Admin: 12/06/19 10:09 Dose: Not Given Documented by: Non-Formulary Medication (Potassium Chloride [Potassium Chloride]) 20 meq PO DAILY [facility] Last Admin: 12/06/19 10:08 Dose: Not Given Documented by: Pantoprazole Sodium (Protonix Iv) 40 mg IVPUSH Q12H [facility] Last Admin: 12/06/19 02:09 Dose: 40 mg Documented by: Spironolactone (Aldactone) 25 mg PO DAILY [facility] Last Admin: 12/06/19 07:47 Dose: 25 mg Documented by: Warfarin Sodium (Coumadin) 5 mg PO [facility] Last Admin: 12/06/19 02:28 Dose: Not Given Documented by: Warfarin Sodium (Coumadin) 10 mg PO [facility] Warfarin Sodium (Coumadin) 5 mg PO [facility] Last Admin: 12/06/19 12:16 Dose: 5 mg Documented by: Zolpidem Tartrate (Ambien) 5 mg PO ONETIME ONE Stop: 12/06/19 02:09 Last Admin: 12/06/19 02:18 Dose: 5 mg Documented by: - Exam Quality Assessment: Reports: Supplemental Oxygen General: Reports: Alert, Oriented HEENT: Reports: Mucous Membr. Moist/[place]: Reports: Supple Lungs: Reports: Decreased Breath Sounds, Rhonchi, Wheezing Cardiovascular: Reports: Irregular Rhythm GI/Abdominal Exam: Normal Bowel Sounds, Soft, Non-Tender Extremities: Normal Inspection, Pedal Edema (1+) Skin: Reports: Warm, Dry Neurological: Reports: No New Focal Deficit
[2019-12-07] MEDS ORDERED: Warfarin 5 MG Tab PO SCH (12:00)
== END 2019-12-07 09:35 | DRG 281 ==
LOC: CC.ED 23:10 → CC.MS 12-06 01:20 → UNDOADMIN 12-06 01:20 → CC.ED 12-06 01:21 → CC.MS 12-06 01:22
PROVIDERS: ADMIT Physician Assistant Medical; ATTEND Family Medicine
DX: I21.9 Acute myocardial infarction, unspecified (principal); E11.9 Type 2 diabetes mellitus without complications; I21.3 ST elevation (STEMI) myocardial infarction of unspecified site; I48.11 Longstanding persistent atrial fibrillation; J43.9 Emphysema, unspecified; I25.10 Atherosclerotic heart disease of native coronary artery without angina pectoris; Z20.828 Contact with and (suspected) exposure to other viral communicable diseases; I11.0 Hypertensive heart disease with heart failure; I50.9 Heart failure, unspecified; Z87.11 Personal history of peptic ulcer disease; N40.0 Benign prostatic hyperplasia without lower urinary tract symptoms; K27.9 Peptic ulcer, site unspecified, unspecified as acute or chronic, without hemorrhage or perforation; M19.90 Unspecified osteoarthritis, unspecified site; E11.40 Type 2 diabetes mellitus with diabetic neuropathy, unspecified; F41.9 Anxiety disorder, unspecified; F17.200 Nicotine dependence, unspecified, uncomplicated; F17.210 Nicotine dependence, cigarettes, uncomplicated; Z79.4 Long term (current) use of insulin; Z79.82 Long term (current) use of aspirin; Z79.02 Long term (current) use of antithrombotics/antiplatelets; Z79.01 Long term (current) use of anticoagulants; Z79.899 Other long term (current) drug therapy; Z95.5 Presence of coronary angioplasty implant and graft; Z98.49 Cataract extraction status, unspecified eye
CPT/HCPCS: 36415; 71046; 80048; 80053; 82550; 82962; 83615; 83880; 84484; 85025; 85610; 86140; 93005; 93306; 94640; 99285-25; A9270-GY; C9113; J1815-GY; J1940; J7620-GY; U0002

== ENCOUNTER 2021-01-18 20:15 | Emergency (ER) | payer MEDICARE ==
[2021-01-18 20:42] VITALS: BP 121/71; PULSE 87
--- NOTE | 2021-01-18 20:54 | EDM.PDOC ---
ED HPI GENERAL MEDICAL PROBLEM - General Chief Complaint: Respiratory Problem Stated Complaint: SOB Time Seen by Provider: 01/18/21 20:35 Source of Information: Reports: Patient History Limitations: Reports: No Limitations - History of Present Illness INITIAL COMMENTS - FREE TEXT/NARRATIVE: Aleksey is a 70 year old male who presents per EMS with complaints of increased shortness of breath. Symptoms started 2-3 days ago. Has had mild edema but admits that is chronic for him. No fevers. Did note one episode of hematuria 2 days ago but hasn't noted that since. He has noted scrotal swelling. Diaphoretic at times. No nausea/vomiting/diarrhea. No fevers. Eating and drinking well. Does admit that he due for an INR. Has been using his nebs as directed. Onset: Gradual Duration: Day(s):, Getting Worse Location: Reports: Chest, Generalized Associated Symptoms: Reports: Cough, Shortness of Breath, Other (heamturia). Denies: Confusion, Chest Pain, Fever/Chills, Nausea/Vomiting Treatments [employer]: Reports: Breathing Treatments - Related Data Allergies Allergy/AdvReac Type Severity Reaction Status Date / Time No Known Allergies Allergy Verified 01/18/21 21:12 Home Meds: Home Meds Furosemide 40 mg PO DAILY 02/08/14 [History] Insulin NPH/Insulin Reg,Human [HumuLIN 70-30] 50 units SUBCUT BEDTIME 02/08/14 [History] Lisinopril 40 mg PO DAILY 02/08/14 [History] Spironolactone 12.5 mg PO DAILY 02/08/14 [History] amLODIPine Besylate [Amlodipine Besylate] 5 mg PO DAILY 02/08/14 [History] carvediloL [Carvedilol] 25 mg PO BID 02/08/14 [History] Aspirin [Halfprin] 81 mg PO DAILY 10/27/18 [History] Cholecalciferol (Vitamin D3) [Vitamin D3] 2,000 units PO DAILY 10/27/18 [History] Clopidogrel Bisulfate [Clopidogrel] 75 mg PO DAILY 10/27/18 [History] Insulin NPH/Insulin Reg,Human [HumuLIN 70-30] 100 units SUBCUT DAILY 10/27/18 [History] Multivitamin [Daily Multiple Vitamin] 1 each PO DAILY 10/27/18 [History] Potassium Chloride 20 meq PO DAILY 10/27/18 [History] Albuterol/Ipratropium [DuoNeb 3.0-0.5 MG/3 ML] 3 ml NEB QIDRT #1 box 10/29/18 [Rx] Budesonide [Pulmicort] 0.5 mg NEB BIDRT #60 neb 10/29/18 [Rx] Warfarin [Coumadin] 5 mg PO MOTUTHFRSA 09/13/19 [History] Warfarin [Coumadin] 10 mg PO SUWE 09/13/19 [History] Cefuroxime [Ceftin] 250 mg PO BID #20 tablet 01/18/21 [Rx] Past Medical History HEENT History: Reports: Cataract Cardiovascular History: Reports: CAD, Hypertension, Stents, Other (See Below) Other Cardiovascular History: Heart attack, CHF Respiratory History: Reports: Asthma, Other (See Below) Other Respiratory History: Emphysema Gastrointestinal History: Reports: PUD Genitourinary History: Reports: BPH Other Genitourinary History: Enlarged prostate Musculoskeletal History: Reports: Arthritis, Other (See Below) (left rotator 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 pin in jaw Neurological History: Reports: Neuropathy, Diabetic Psychiatric History: Reports: Anxiety Endocrine/Metabolic History: Reports: Diabetes, Type II - Past Surgical History HEENT Surgical History: Reports: Cataract Surgery Cardiovascular Surgical History: Reports: None Respiratory Surgical History: Reports: None GI Surgical History: Reports: None Musculoskeletal Surgical History: Reports: None Social & Family History - Family History Family Medical History: No Pertinent Family History - Tobacco Use Tobacco Use Status *Q: Current Every Day Tobacco User - Caffeine Use Caffeine Use: Reports: None ED ROS GENERAL - Review of Systems Review Of Systems: See Below Constitutional: Reports: Malaise, Weakness, Fatigue. Denies: Fever, Chills HEENT: Reports: Rhinitis. Denies: Ear Pain, Throat Pain Respiratory: Reports: Shortness of Breath, Cough, Sputum Cardiovascular: Reports: Edema. Denies: Chest Pain, Lightheadedness Endocrine: Reports: Fatigue GI/Abdominal: Denies: Abdominal Pain, Constipation, Diarrhea, Nausea, Vomiting : Reports: Hematuria Musculoskeletal: Reports: No Symptoms Skin: Reports: No Symptoms Neurological: Reports: Weakness ED EXAM, GENERAL - Physical Exam Exam: See Below Exam Limited By: No Limitations General Appearance: Alert, WD/WN, Mild Distress Ears: Normal External Exam, Normal TMs Nose: Normal Inspection, Normal Mucosa, No Blood Throat/Mouth: Normal Inspection, Other (dry mucous membranes) Head: Normocephalic Neck: Normal Inspection, Supple, Non-Tender Respiratory/Chest: Decreased Breath Sounds, Wheezing, Accessory Muscle Use Cardiovascular: Irregularly Irregular GI/Abdominal: Normal Bowel Sounds, Soft, Non-Tender Extremities: Pedal Edema (1+) Neurological: Alert, Oriented Skin Exam: Diaphoretic Course - Vital Signs Last Recorded V/S: Last Vital Signs Temp 97.8 F 01/18/21 20:29 Pulse 87 01/18/21 20:29 Resp 18 01/18/21 20:29 BP 121/71 01/18/21 20:29 Pulse Ox 96 01/18/21 20:29 - Orders/Labs/Meds Orders: Active Orders 24 hr Category Date Time Status Chest 2V [CR] Stat Exams 01/18/21 20:46 Taken CULTURE URINE [RM] Routine Lab 01/18/21 20:47 Received Cefuroxime [Ceftin] Med 01/19/21 08:00 Ordered 250 mg PO BIDMEALS cefTRIAXone 1 GM,Lidocaine 1% 1.2 ML Med 01/18/21 21:30 Ordered cefTRIAXone [Rocephin] 1 gm Lidocaine 1% [Xylocaine-MPF 1%] 1.2 ml IM Q24H Medication Orders Cefuroxime Axetil (Cefuroxime 250 Mg Tab) 250 mg PO BIDMEALS [facility] Ceftriaxone Sodium 1 gm/ (Lidocaine HCl 1.2 ml) 0 gm IM Q24H [facility] Last Admin: 01/18/21 21:35 Dose: 1 inj Documented by: CUBA Labs: Laboratory Tests 01/18/21 01/18/21 01/18/21 Range/Units 20:31 20:31 20:31 WBC 15.9 H (4.0-11.0) 10^3/uL RBC 4.31 L (4.50-6.00) x10^6/uL Hgb 14.3 (14.0-18.0) g/dL Hct 41.7 L (42.0-52.0) % MCV 96.8 (83.0-97.0) fL MCH 33.2 H (27.0-32.0) pg MCHC 34.3 (32.0-36.0) g/dL RDW Coeff of Mo 13.5 (11.0-15.0) % Plt Count 127 L (150-400) 10^3/uL Immature Gran % (Auto) 0.6 (0.0-4.9) % Neut % (Auto) 80.8 H (41-71) % Lymph % (Auto) 9.2 L (24-44) % [place] % (Auto) 9.1 (0-10) % Eos % (Auto) 0.0 (0-6) % Baso % (Auto) 0.3 (0-1) % Neut # (Auto) 12.86 H (1.80-8.00) x10^3/uL Lymph # (Auto) 1.46 (0.60-5.00) 10^3/uL [place] # (Auto) 1.45 (0.00-1.50) 10^3/uL Eos # (Auto) 0.00 (0.00-1.50) 10^3/uL Baso # (Auto) 0.04 (0.00-0.50) 10^3/uL Immature Gran # (Auto) 0.09 (0.00-0.49) 10^3/uL PT (9.7-12.3) SEC INR (0.92-1.18) Sodium 133 L (136-145) mEq/L Potassium 4.3 (3.5-5.0) mEq/L Chloride 95 L (98-106) mEq/L Carbon Dioxide 28 (21-32) mmol/L BUN 20 H (7-18) mg/dL Creatinine 1.2 (0.7-1.3) mg/dL Est Cr Clr Drug Dosing 64.69 mL/min Estimated GFR (MDRD) 60 (>=60) mL/min Glucose 85 D (75-99) mg/dL Lactic Acid 1.4 (0.4-2.0) mmol/L Calcium 8.9 (8.4-10.1) mg/dL Total Bilirubin 1.1 H (0.0-1.0) mg/dL AST 19 (15-37) U/L ALT 17 (12-78) U/L Alkaline Phosphatase 62 (46-116) U/L Lactate Dehydrogenase 164 (100-190) U/L Creatine Kinase 153 (35-232) U/L Troponin I High Sens 29.0 (<=76) pg/mL C-Reactive Protein 25.0 H (0.2-0.8) mg/dL NT-Pro-B Natriuret Pep 3760 H (0-1000) pg/mL Total Protein 7.3 (6.4-8.2) g/dL Albumin 3.1 L (3.4-5.0) g/dL Urine Color (YELLOW) Urine Appearance (CLEAR) Urine pH (4.5-8.0) Ur Specific [place] (1.003-1.020) Urine Protein (NEGATIVE) mg/dL Urine Glucose (UA) (NEGATIVE) mg/dL Urine Ketones (NEGATIVE) mg/dL Urine Occult Blood (NEGATIVE) Urine Nitrite (NEGATIVE) Urine Bilirubin (NEGATIVE) Urine Urobilinogen (0.2-1.0) EU/dL Ur Leukocyte Esterase (NEGATIVE) Urine RBC (0-5) /HPF Urine WBC (0-5) /HPF Urine Bacteria (NOT SEEN) /HPF Urinalysis Comment 01/18/21 01/18/21 Range/Units 20:47 20:59 WBC (4.0-11.0) 10^3/uL RBC (4.50-6.00) x10^6/uL Hgb (14.0-18.0) g/dL Hct (42.0-52.0) % MCV (83.0-97.0) fL MCH (27.0-32.0) pg MCHC (32.0-36.0) g/dL RDW Coeff of Mo (11.0-15.0) % Plt Count (150-400) 10^3/uL Immature Gran % (Auto) (0.0-4.9) % Neut % (Auto) (41-71) % Lymph % (Auto) (24-44) % [place] % (Auto) (0-10) % Eos % (Auto) (0-6) % Baso % (Auto) (0-1) % Neut # (Auto) (1.80-8.00) x10^3/uL Lymph # (Auto) (0.60-5.00) 10^3/uL [place] # (Auto) (0.00-1.50) 10^3/uL Eos # (Auto) (0.00-1.50) 10^3/uL Baso # (Auto) (0.00-0.50) 10^3/uL Immature Gran # (Auto) (0.00-0.49) 10^3/uL PT 21.3 H (9.7-12.3) SEC INR 2.04 H (0.92-1.18) Sodium (136-145) mEq/L Potassium (3.5-5.0) mEq/L Chloride (98-106) mEq/L Carbon Dioxide (21-32) mmol/L BUN (7-18) mg/dL Creatinine (0.7-1.3) mg/dL Est Cr Clr Drug Dosing mL/min Estimated GFR (MDRD) (>=60) mL/min Glucose (75-99) mg/dL Lactic Acid (0.4-2.0) mmol/L Calcium (8.4-10.1) mg/dL Total Bilirubin (0.0-1.0) mg/dL AST (15-37) U/L ALT (12-78) U/L Alkaline Phosphatase (46-116) U/L Lactate Dehydrogenase (100-190) U/L Creatine Kinase (35-232) U/L Troponin I High Sens (<=76) pg/mL C-Reactive Protein (0.2-0.8) mg/dL NT-Pro-B Natriuret Pep (0-1000) pg/mL Total Protein (6.4-8.2) g/dL Albumin (3.4-5.0) g/dL Urine Color Yellow (YELLOW) Urine Appearance Cloudy (CLEAR) Urine pH 5.5 (4.5-8.0) Ur Specific [place] 1.015 (1.003-1.020) Urine Protein 30 H (NEGATIVE) mg/dL Urine Glucose (UA) 100 H (NEGATIVE) mg/dL Urine Ketones Negative (NEGATIVE) mg/dL Urine Occult Blood Large H (NEGATIVE) Urine Nitrite Positive H (NEGATIVE) Urine Bilirubin Negative (NEGATIVE) Urine Urobilinogen 0.2 (0.2-1.0) EU/dL Ur Leukocyte Esterase Large H (NEGATIVE) Urine RBC 50-75 H (0-5) /HPF Urine WBC 75-100 H (0-5) /HPF Urine Bacteria Moderate H (NOT SEEN) /HPF Urinalysis Comment Meds: Medications Generic Name Dose Route Start Last Admin Trade Name Freq PRN Reason Stop Dose Admin Cefuroxime Axetil 250 mg 01/19/21 08:00 Cefuroxime 250 Mg Tab PO BIDMEALS [facility] Ceftriaxone Sodium 1 gm/ 0 gm 01/18/21 21:30 01/18/21 21:35 Lidocaine HCl 1.2 ml IM 1 inj Q24H WAYNE Administration Discontinued Medications Generic Name Dose Route Start Last Admin Trade Name Freq PRN Reason Stop Dose Admin Cefuroxime Axetil 1 packet 01/18/21 21:22 Take Home: Cefuroxime 250 Mg Tab, 2 Tab Pack PO 01/18/21 21:23 ONETIME ONE - Re-Assessments/Exams Free Text/Narrative Re-Assessment/Exam: 01/18/21 Patient refuses covid testing with other lab draws. States does not believe in covid, testing or the vaccine. Advised patient that is advisable for thorough evaluation, patient and staff protection but continues to refuse and states "will leave"then". Other lab testing done, over for chest xray 212901/18/21 21:15-Lab results noted, chest xray viewed. Does have elevated ProBNp, near 4000. UA is positive. discussed admission with patient. Advised that would again need to test for covid or be admitted in to a covid room with respect to protection for him, other patients and staff. Again refused. Informed would be then admitted in covid room but wouldn't be allowed any visit ors. Nephew here and advising patient to be tested. Patient refusing to be admitted regardless. Informed patient that would not advise patient to return home as although not requiring oxygen, does appear dyspneic with conversation. "just want the antibiotic for my bladder and let me go home". Informed also has need for increased diuretics. WBC is high at nearly 16, CRP high at 25. Refuses to stay, signed AMA. Nephew aware of recommendations as well. Departure - Departure Time of Disposition: 21:26 Disposition: Against Medical Advice 07 Condition: Fair Clinical Impression: Congestive heart failure, UTI (urinary tract infection) - Discharge Information *PRESCRIPTION DRUG MONITORING PROGRAM REVIEWED*: No *COPY OF PRESCRIPTION DRUG MONITORING REPORT IN PATIENT AVRIL: No Prescriptions: Cefuroxime [Ceftin] 250 mg PO BID #20 tablet Instructions: Chronic Obstructive Pulmonary Disease Exacerbation, [id number], Heart Failure, Self-Care, [id number], Urinary Tract Infection, Adult, [id number] Forms: ED Department Discharge Additional Instructions: 1. Push fluids 2. Take lasix 40 mg twice a day until evaluation next week by Jm 3. Ceftin 250 mg twice a day for 10 days 4. Follow up with Jm Sahni early next week Sepsis Event Note (ED) - Focused Exam Vital Signs: Vital Signs Temp Pulse Resp BP Pulse Ox 01/18/21 20:29 97.8 F 87 18 121/71 96 - My Orders Last 24 Hours: My Active Orders 01/18/21 20:46 Chest 2V [CR] Stat 01/18/21 20:47 CULTURE URINE [RM] Routine 01/18/21 21:30 cefTRIAXone 1 GM,Lidocaine 1% 1.2 ML cefTRIAXone [Rocephin] 1 gm Lidocaine 1% [Xylocaine-MPF 1%] 1.2 ml IM Q24H 01/19/21 08:00 Cefuroxime [Ceftin] 250 mg PO BIDMEALS - Assessment/Plan Last 24 Hours: My Active Orders 01/18/21 20:46 Chest 2V [CR] Stat 01/18/21 20:47 CULTURE URINE [RM] Routine 01/18/21 21:30 cefTRIAXone 1 GM,Lidocaine 1% 1.2 ML cefTRIAXone [Rocephin] 1 gm Lidocaine 1% [Xylocaine-MPF 1%] 1.2 ml IM Q24H 01/19/21 08:00 Cefuroxime [Ceftin] 250 mg PO BIDMEALS
[2021-01-18] MEDS ORDERED: Take Home: Cefuroxime 250 MG Tab, 2 Tab Pack PO ONE (21:22)
[2021-01-18] MEDS: cefTRIAXone 1 GM, Lidocaine 1% 1.2 ML IM SCH ×2 (21:35)
[2021-01-19] MEDS ORDERED: Cefuroxime 250 MG Tab PO SCH (08:00)
== END 2021-01-18 21:45 | disposition left against medical advice (07) ==
LOC: CC.ED 20:15
DX: N39.0 Urinary tract infection, site not specified (principal); I11.0 Hypertensive heart disease with heart failure; I50.9 Heart failure, unspecified; I25.10 Atherosclerotic heart disease of native coronary artery without angina pectoris; J43.9 Emphysema, unspecified; M19.90 Unspecified osteoarthritis, unspecified site; E11.40 Type 2 diabetes mellitus with diabetic neuropathy, unspecified; Z72.0 Tobacco use; Z79.4 Long term (current) use of insulin; Z79.82 Long term (current) use of aspirin; Z79.02 Long term (current) use of antithrombotics/antiplatelets; Z79.899 Other long term (current) drug therapy
CPT/HCPCS: 36415; 71046; 80053; 81001; 82550; 83605; 83615; 83880; 84484; 85025; 85610; 86140; 87086; 87088; 87186; 93005; 93010; 96372; 99284; 99285-25; J0696